=== PATIENT | female | born 1965 ===

== ENCOUNTER 2017-08-01 08:33 | Emergency (ER) | payer MEDICARE ==
[2017-08-01 08:55] VITALS: BP 149/87; PULSE 100; RESP 18; TEMP 99; O2SAT 98
--- NOTE | 2017-08-01 09:27 | ED PDOC ---
HPI: CCC, URI, Sore Throat Time Seen by Provider: 08/01/17 09:20 Chief Complaint (Nursing): ENT Problem History Per: Patient (Sore throat and left earache x 1 week. assoc with fever. No cough) Onset/Duration Of Symptoms: Days (7) Current Symptoms Are (Timing): Still Present Location Of Pain: Ear(s), Throat Associated Symptoms: Fever, Sore Throat. denies: Cough Past Medical History Vital Signs: Last Vital Signs Temp 99 F 08/01/17 08:52 Pulse 100 H 08/01/17 08:52 Resp 18 08/01/17 08:52 BP 149/87 08/01/17 08:52 Pulse Ox 98 08/01/17 08:52 - Medical History PMH: Anxiety, HTN - Family History Family History: States: Unknown Family Hx - Home Medications Home Medications: Ambulatory Orders Medication Instructions Recorded oxyCODONE/Acetaminophen [Percocet 1 ea PO TID #12 tab 11/09/14 5/325 mg Tab] Amoxicillin [Amoxil 500 mg Cap] 500 mg PO TID #30 cap 08/01/17 - Allergies Allergies/Adverse Reactions: Allergies Allergy/AdvReac Type Severity Reaction Status Date / Time No Known Allergies Allergy Verified 08/01/17 08:49 Review of Systems Constitutional: Positive for: Fever ENT: Positive for: Ear Pain, Throat Pain Respiratory: Negative for: Cough Physical Exam - Physical Exam Appears: Positive for: Non-toxic, No Acute Distress Skin: Positive for: Normal Color, Warm, DRY ENT: Positive for: TM Is/Are (nl), Pharyngeal Erythema. Negative for: Sinus Pain/Drainage Neck: Positive for: Normal, Painless ROM Cardiovascular/Chest: Positive for: Regular Rate, Rhythm Respiratory: Positive for: CNT, Normal Breath Sounds - ECG O2 Sat by Pulse Oximetry: 98 Disposition - Clinical Impression Clinical Impression: Pharyngitis - Patient ED Disposition Is Patient to be Admitted: No Counseled Patient/Family Regarding: Studies Performed, Diagnosis, Need For Followup, Rx Given - Disposition Referrals: [facility] [Outside] Disposition: Routine/Home Disposition Time: 09:26 Condition: FAIR Prescriptions: Amoxicillin [Amoxil 500 mg Cap] 500 mg PO TID #30 cap Instructions: Pharyngitis (ED)
== END 2017-08-01 10:34 | disposition home or self-care (01) ==
LOC: H.ER 08:33
DX: J02.9 Acute pharyngitis, unspecified (principal)

== ENCOUNTER 2017-11-20 09:25 | Emergency (ER) | payer MEDICARE ==
--- NOTE | 2017-11-20 10:25 | ED PDOC ---
HPI: Chest Pain Time Seen by Provider: 11/20/17 09:48 Chief Complaint (Nursing): Chest Pain Chief Complaint (Provider): Palpitation and Chest pain History Per: Patient History/Exam Limitations: no limitations Onset/Duration Of Symptoms: Days (1 day ago) Current Symptoms Are (Timing): Still Present Additional Complaint(s): 52 yo female with a history of hypertension, presents to the ED sharp chest pain , shortness of breath, palpitation, and a prescription refill for Tramadol, onset of 1 day ago. Patient reports of having on going chest pain throughout the night and this morning, and believes it stems from not taking her Tramadol prescription for the past 2 days because she misplaced the tablets. Of note, patient has a history of chronic left-sided back pain, radiating down to her left leg,and endured 4 back surgeries. She denies fever, cough, and leg swelling. Past Medical History Reviewed: Historical Data, Nursing Documentation, Vital Signs Vital Signs: Last Vital Signs Temp 98.0 F 11/20/17 13:50 Pulse 85 11/20/17 13:50 Resp 16 11/20/17 13:50 BP 145/88 11/20/17 13:50 Pulse Ox 99 11/20/17 13:50 - Medical History PMH: Anxiety, HTN, Chronic Pain (left sided back pain) - Surgical History Surgical History: (x3) Other surgeries: back surgery - Family History Family History: States: Unknown Family Hx - Social History Current smoker - smoking cessation education provided: No Ex-Smoker (has not smoked in the last 12 months): No Alcohol: None Drugs: Denies - Home Medications Home Medications: Ambulatory Orders Medication Instructions Recorded oxyCODONE/Acetaminophen [Percocet 1 ea PO TID #12 tab 11/09/14 5/325 mg Tab] Amoxicillin [Amoxil 500 mg Cap] 500 mg PO TID #30 cap 08/01/17 traMADol [Ultram] 50 mg PO TID PRN #9 tab 11/20/17 - Allergies Allergies/Adverse Reactions: Allergies Allergy/AdvReac Type Severity Reaction Status Date / Time No Known Allergies Allergy Verified 08/01/17 08:49 GRIS Risk Score for UA/NSTEMI - GRIS Risk Score Age > 64: NO 3 or more CAD Risk Factors: NO Known CAD (Stenosis greater than 50%): NO Aspirin use in past 7 days: NO Severe Angina: NO EKG ST changes greater than 0.5mm: NO Positive Cardiac Marker: NO GRIS Score: 0 Risk %: 5% Wells Criteria for PE - Wells Criteria for Pulmonary Embolism Clinical Signs and Symptoms of DVT: No P.E is #1 Diagnosis, or Equally Likely: No Heart Rate >100: No Immobilization at least 3 days;Surgery previous 4 weeks: No Previous, objectively diagnosed PE or DVT: No Hemoptysis: No Malignancy w/treatment within 6 months, or palliative: No Total Score: 0 Review of Systems ROS Statement: Except As Marked, All Systems Reviewed And Found Negative Constitutional: Negative for: Fever Cardiovascular: Positive for: Chest Pain, Palpitations Respiratory: Positive for: Shortness of Breath. Negative for: Cough Musculoskeletal: Positive for: Back Pain (left sided), Leg Pain (but no leg swelling) Physical Exam - Reviewed Nursing Documentation Reviewed: Yes Vital Signs Reviewed: Yes - Physical Exam Appears: Positive for: Well, Non-toxic, No Acute Distress Head Exam: Positive for: ATRAUMATIC, NORMAL INSPECTION, NORMOCEPHALIC Skin: Positive for: Normal Color, Warm, DRY Eye Exam: Positive for: EOMI, Normal appearance, PERRL ENT: Positive for: Normal ENT Inspection Neck: Positive for: Normal, Painless ROM Cardiovascular/Chest: Positive for: Regular Rate, Rhythm. Negative for: Murmur Respiratory: Positive for: Normal Breath Sounds. Negative for: Respiratory Distress Gastrointestinal/Abdominal: Positive for: Normal Exam, Soft. Negative for: Tenderness Back: Positive for: Other (diffusely tender to palpation) Extremity: Positive for: Normal ROM. Negative for: Pedal Edema, Deformity Neurologic/Psych: Positive for: Alert, Oriented. Negative for: Motor/Sensory Deficits - Laboratory Results Result Diagrams: 11/20/17 10:50 11/20/17 10:50 - ECG ECG Rhythm: Positive for: Normal QRS, Normal ST Segment, Sinus Rhythm (normal) Rate: 98 O2 Sat by Pulse Oximetry: 100 (RA) Pulse Ox Interpretation: Normal Medical Decision Making Medical Decision Making: Time: --10:45 Impression: --Chest pain, Chronic back pain, and prescription refill Differential: --ACS vs. cardiac arrhythmia Plan: --ECG --Labs --Troponin I --Toradol 30mg IM --Ultram 50mg PO --Video Intern Reassess -- Scribe Attestation: Documented by Alejandro Waterman acting as a scribe for Lashell Ordaz MD. Disposition - Clinical Impression Clinical Impression: Chest pain, Chronic back pain - Patient ED Disposition Is Patient to be Admitted: No Doctor Will See Patient In The: Office Counseled Patient/Family Regarding: Studies Performed, Diagnosis, Need For Followup - Disposition Referrals: [facility] [Outside] Disposition: Routine/Home Disposition Time: 13:50 Condition: GOOD Additional Instructions: Follow up with your PCP in 2-3 days. Return for worsening. Prescriptions: traMADol [Ultram] 50 mg PO TID PRN #9 tab PRN Reason: Pain, Severe (8-10) Instructions: Chronic Pain (DC), Chest Pain (DC)
[2017-11-20 10:57] LABS: BASO # 0.1 K/uL (0.0-0.2); BASO % 0.7 % (0.0-2.0); EOS # 0.1 K/uL (0.0-0.7); EOS % 1.2 % (0.0-4.0); LYMPH # 1.9 K/uL (1.0-4.3); LYMPH % 18.5 % (20.0-40.0); MEAN CELL VOLUME 97.7 fl (81.0-99.0); MEAN CORPUSCULAR HEMOGLOBIN 33.3 pg (27.0-31.0); MEAN CORPUSCULAR HGB CONC 34.1 g/dL (33.0-37.0); MEAN PLATELET VOLUME 8.2 fl (7.2-11.7); MONO # 0.5 K/uL (0.0-0.8); MONO % 4.6 % (0.0-10.0); NEUT # 7.7 K/uL (1.8-7.0); RBC 3.61 Mil/uL (3.80-5.20); RED CELL DISTRIBUTION WIDTH 14.6 % (11.5-14.5); WHITE BLOOD COUNT 10.3 K/uL (4.8-10.8)
[2017-11-20 11:28] LABS: BLOOD UREA NITROGEN 15 mg/dl (7-17); CALCIUM 9.7 mg/dL (8.4-10.2); GFR AFRICAN-AMERICAN > 60; GFR NON-AFRICAN AMERICAN > 60
[2017-11-20 13:52] VITALS: BP 145/88; RESP 16; TEMP 98
[2017-11-20 15:59] VITALS: PULSE 98; O2SAT 100
--- NOTE | 2017-11-21 12:12 | CARD ---
APPROVED REPORT EKG Measurement Heart [id number] <Conclusion> Normal sinus rhythm Normal ECG
== END 2017-11-20 13:50 | disposition home or self-care (01) ==
LOC: H.ER 09:25
DX: R07.89 Other chest pain (principal); F41.9 Anxiety disorder, unspecified; G89.29 Other chronic pain; I10 Essential (primary) hypertension; Z76.0 Encounter for issue of repeat prescription
CPT/HCPCS: 80048; 81025; 84484; 85025; 93005; 96372; 99283; J1885

== ENCOUNTER 2018-10-24 20:49 | Inpatient (IN) | payer MEDICARE ==
--- NOTE | 2018-10-24 22:10 | ED PDOC ---
HPI: General Adult Time Seen by Provider: 10/24/18 21:02 Chief Complaint (Nursing): Palpitations Chief Complaint (Provider): Weakness History Per: Patient History/Exam Limitations: no limitations Onset/Duration Of Symptoms: Persistent Additional History Per: Patient Additional Complaint(s): 53yo female, with history of hypertension (non-compliant with medications), com es to ER reporting generalized weakness x 2 weeks, which has been progressively worsening. She also reports associated malaise, fatigue, tremors and unintentional weight loss. Patient states she feels as if her extremities are more "slim" than usual. She also reports episodes of blurry vision with a ssociated headache; patient had similar symptoms when she was first diagnosed with hypertension. She stopped taking her hypertension medications 2-3 years ago after her 4th back surgery because she felt like she didn't need it anymore. She additionally reports chills, mild headache, near syncopal episode and dyspnea on exertion. No additional complaints. PMD: Dr. Arreola (has not seen in >1 year) Past Medical History Reviewed: Historical Data, Nursing Documentation, Vital Signs Vital Signs: Last Vital Signs Temp 98.1 F 10/24/18 20:53 Pulse 111 H 10/24/18 20:53 Resp 22 10/24/18 20:53 BP 184/91 H 10/24/18 20:53 Pulse Ox 98 10/24/18 20:53 - Medical History PMH: Anxiety, HTN, Chronic Pain (left sided back pain) - Surgical History Surgical History: Back Surgery, (x3) Other surgeries: clavicular fracture repair - Family History Family History: States: Hypertension, Other Other Family History: cardiac disease - Social History Current smoker - smoking cessation education provided: No Alcohol: Occasional Drugs: Cannabis, Cocaine, Opiates - Home Medications Home Medications: Ambulatory Orders Medication Instructions Recorded oxyCODONE/Acetaminophen [Percocet 1 ea PO TID #12 tab 11/09/14 5/325 mg Tab] Amoxicillin [Amoxil 500 mg Cap] 500 mg PO TID #30 cap 08/01/17 traMADol [Ultram] 50 mg PO TID PRN #9 tab 11/20/17 - Allergies Allergies/Adverse Reactions: Allergies Allergy/AdvReac Type Severity Reaction Status Date / Time No Known Allergies Allergy Verified 10/24/18 20:51 Review of Systems ROS Statement: Except As Marked, All Systems Reviewed And Found Negative Constitutional: Positive for: Fever, Chills, Malaise, Weight loss Cardiovascular: Positive for: Light Headedness. Negative for: Chest Pain Respiratory: Positive for: SOB with Exertion. Negative for: Shortness of Breath Neurological: Positive for: Headache Physical Exam - Reviewed Nursing Documentation Reviewed: Yes Vital Signs Reviewed: Yes - Physical Exam Appears: Positive for: Non-toxic, No Acute Distress Head Exam: Positive for: ATRAUMATIC, NORMAL INSPECTION, NORMOCEPHALIC Skin: Positive for: Warm, Dry, Pallor Eye Exam: Positive for: EOMI, PERRL, Other (normal visual field test). Negative for: Nystagmus ENT: Negative for: Pharyngeal Erythema, Tonsillar Exudate Neck: Positive for: Normal, Supple Cardiovascular/Chest: Positive for: Tachycardia. Negative for: Murmur Respiratory: Positive for: Normal Breath Sounds. Negative for: Respiratory Distress Gastrointestinal/Abdominal: Positive for: Normal Exam, Soft. Negative for: Tenderness Back: Positive for: Normal Inspection. Negative for: Vertebral Tenderness Rectal: Positive for: Rectal Tone Is: (normal), Other (Assited by ANTWAN Knowles). Negative for: Black Stool, Hemorrhoids, Tenderness Extremity: Positive for: Normal ROM, Other (diffuse tremors noted) Lymphatic: Negative for: Adenopathy Neurologic/Psych: Positive for: Alert, Oriented (x 3). Negative for: M otor/Sensory Deficits - Laboratory Results Result Diagrams: 10/24/18 22:10 10/24/18 22:10 - ECG O2 Sat by Pulse Oximetry: 98 (RA) Pulse Ox Interpretation: Normal Medical Decision Making Medical Decision Making: Impression: Weakness, tremors and blurry vision Differential: Including but not limited to hypertensive encephalopathy, hyperthyroidsm, electrolyte abnormalities, anemia, viral syndrome Plan: -- labs -- CT Head w.o contrast -- Infectious mono 7 CT Head FINDINGS: BRAIN No acute intraparenchymal hemorrhage. No mass lesion. No CT evidence for acute territorial infarct. No midline shift or extra-axial collections. VENTRICLES: No hydrocephalus. ORBITS: The orbits are unremarkable. SINUSES AND MASTOIDS: The paranasal sinuses and mastoid air cells are clear. BONES: No fracture. SOFT TISSUES: Unremarkable. IMPRESSION: No acute intracranial abnormality. 2255 Labs reviewed, patient's hemoglobin level is 6; discussed findings with patient and denies history of anemia. She states she hasnt had a period in > 1 year. She also denies any black or bloody stools, and denies history of GI bleed. Patient does reports her mother had history of iron deficiency. Discussed risks and benefits of transfusion, and consent for blood tansfusion obtained. MIRA Sinha Medical service for admission Scribe Attestation: Documented by Andria Casper acting as a scribe for Regine Morris MD. Provider Attestation: All medical record entries made by the Scribe were at my direction and personally dictated by me. I have reviewed the chart and agree that the record accurately reflects my personal performance of the history, physical exam, medical decision making, and the department course for this patient. I have also personally directed, reviewed, and agree with the discharge instructions and disposition. Disposition - Clinical Impression Clinical Impression: Anemia - Disposition Disposition Time: 23:00 Condition: FAIR Forms: [employer]ure (Kiswahili) - Pt Status Changed To: Hospital Disposition Of: Inpatient - Admit Certification Admit to Inpatient:: After my assessment, the patient will require hospitalization for at least two midnights. This is because of the severity of symptoms shown, intensity of services needed, and/or the medical risk in this patient being treated as an outpatient. - POA Present On Arrival: None
[2018-10-24 22:25] LABS: BASO # 0.1 K/uL (0.0-0.2); BASO % 0.7 % (0.0-2.0); EOS # 0.2 K/uL (0.0-0.7); EOS % 2.5 % (0.0-4.0); LYMPH # 3.1 K/uL (1.0-4.3); LYMPH % 40.3 % (20.0-40.0); MEAN CELL VOLUME 107.6 fl (81.0-99.0); MEAN CORPUSCULAR HEMOGLOBIN 35.5 pg (27.0-31.0); MEAN PLATELET VOLUME 7.6 fl (7.2-11.7); MONO # 0.5 K/uL (0.0-0.8); MONO % 6.2 % (0.0-10.0); NEUT # 3.9 K/uL (1.8-7.0); NEUT % 50.3 % (50.0-75.0); NRBC % 0.3 % (0.0-0.0); RBC 1.83 Mil/uL (3.80-5.20); RED CELL DISTRIBUTION WIDTH 20.8 % (11.5-14.5); WHITE BLOOD COUNT 7.8 K/uL (4.8-10.8)
[2018-10-24 22:30] LABS: PROTHROMBIN TIME 11.7 Seconds (9.8-13.1)
[2018-10-24 22:32] LABS: PARTIAL THROMBOPLASTIN TIME 34.2 Seconds (25.6-37.1)
[2018-10-24 22:37] LABS: ALBUMIN 4.1 g/dL (3.5-5.0); ALT/SGPT 51 U/L (9-52); AST/SGOT 86 U/L (14-36); BLOOD UREA NITROGEN 20 mg/dl (7-17); CALCIUM 9.4 mg/dL (8.4-10.2); GFR NON-AFRICAN AMERICAN > 60
[2018-10-24 22:46] LABS: PHENCYCLIDINE, UR NEGATIVE (NEGATIVE)
[2018-10-24 22:47] LABS: HEMOGLOBIN 6.5 g/dL (12.0-16.0)
[2018-10-24 22:50] LABS: VENOUS BLOOD GAS PCO2 56 mmHg (40-60); VENOUS BLOOD GAS PO2 31 mm/Hg (30-55)
[2018-10-24 22:52] LABS: BARBITURATES, UR NEGATIVE (NEGATIVE); BENZODIAZEPINES, UR NEGATIVE (NEGATIVE); OPIATES, UR NEGATIVE (NEGATIVE)
[2018-10-24 23:01] LABS: B-TYPE NATRIURETIC PEPTIDE 242 pg/ml (0-900)
[2018-10-24 23:19] LABS: T3 3.78 nmol/L (1.49-2.60)
[2018-10-24 23:42] LABS: IRON 189 ug/dL (37-170)
[2018-10-24 23:51] LABS: % IRON SATURATION 49 % (20-55); TOTAL IRON BINDING CAPACITY 385 ug/dL (250-450)
[2018-10-25 00:08] LABS: FERRITIN 75.5 ng/Ml (11.1-264.0)
[2018-10-25 00:59] LABS: SQUAMOUS EPITHIAL 4 /hpf (0-5); URINE BACTERIA RARE (<OCC); URINE BILIRUBIN NEGATIVE (NEGATIVE); URINE BLOOD NEGATIVE (NEGATIVE); URINE CLARITY SLIGHTY-CLOUDY (Clear); URINE COLOR YELLOW (YELLOW); URINE GLUCOSE (UA) NEG (NEGATIVE); URINE HYALINE CAST 0-2 /hpf (0-2); URINE LEUKOCYTE ESTERASE NEG Leu/uL (Negative); URINE PROTEIN NEGATIVE (NEGATIVE); URINE UROBILINOGEN 0.2-1.0 mg/dL (0.2-1.0)
[2018-10-25] MEDS: Sodium Chloride 0.9% 1,000 ML IV SCH ×4 (01:57→21:04)
--- NOTE | 2018-10-25 09:48 | CARD ---
APPROVED REPORT Date of service: 10/24/2018 EKG Measurement Heart [id number] <Conclusion> Normal sinus rhythm Normal ECG
--- NOTE | 2018-10-25 09:48 | CT ---
Date of service: 10/24/2018 PROCEDURE: CT HEAD WITHOUT CONTRAST. HISTORY: hypertension blurry vision COMPARISON: None available. TECHNIQUE: Axial computed tomography images were obtained through the head/brain without intravenous contrast. Radiation dose: Total exam DLP = 803.08 mGy-cm. This CT exam was performed using one or more of the following dose reduction techniques: Automated exposure control, adjustment of the mA and/or kV according to patient size, and/or use of iterative reconstruction technique. FINDINGS: HEMORRHAGE: No intracranial hemorrhage. BRAIN: No mass effect or edema. No atrophy or chronic microvascular ischemic changes. VENTRICLES: Unremarkable. No hydrocephalus. CALVARIUM: There is diffuse thickening of the calvarium with diffuse multiple varying sizes of lucencies throughout the diploic space-this is of unclear clinical significance-if any-. Complete blood count the correlation is recommended. PARANASAL SINUSES: Unremarkable as visualized. No significant inflammatory changes. MASTOID AIR CELLS: Unremarkable as visualized. No inflammatory changes. OTHER FINDINGS: None. IMPRESSION: Intracranial hemorrhage or mass effect. Diffuse calvarial thickening with the aforementioned appearance of the calvarial diploic space. Its clinical significance, if any-is unclear. Correlation with blood work-hematological blood work/complete blood cell analysis and to evaluate for any potential anemic states. No hemorrhage or mass effect was provided with the preliminary [place] rad report the appearance of the calvarial diploic space was not.
[2018-10-25 14:18] LABS: FOLATE 15.2 ng/mL
[2018-10-25 14:26] LABS: MEAN CELL VOLUME 98.3 fl (81.0-99.0); MEAN CORPUSCULAR HEMOGLOBIN 33.6 pg (27.0-31.0); MEAN CORPUSCULAR HGB CONC 34.2 g/dL (33.0-37.0); RBC 2.83 Mil/uL (3.80-5.20); RED CELL DISTRIBUTION WIDTH 22.4 % (11.5-14.5)
[2018-10-25 14:28] LABS: HEMOGLOBIN 9.5 g/dL (12.0-16.0)
[2018-10-25 14:30] LABS: INR 1.1
[2018-10-26] MEDS ORDERED: Iohexol 240 (50 ml) PO ONE (08:27)
--- NOTE | 2018-10-26 08:38 | CP.PCM.CON ---
History of Present Illness - History of Present Illness History of Present Illness: This is a 53 yrs old female who was brought to the ER with c/o severe weakness, dizziness, near syncopy. This has been going on for the last 6 weeks and pt has lost 8 lbs since then. She moves her bowels regularly, no blood in the stools, no dark colored stools. She c/o abdominal pain. She has a h/o hypertension but she stopped taking her medicines 3 yrs ago. She has had 3 surgeries for her spine that she had injured during an accident and was taking Tramadol 3-4 times a day for the pain. She used to have heavy periods, but had her menopause at age 50. No vaginal bleeding since then. IN the ER she had a CBC done which shows a wbc of 7.8, hgb 6.5gms, platelet 256K, She was transfused 2 units of blood and today her hgb is 9.5. The iron studies, and B12 are normal. Her reticulocyte count is 9.2, and haptoglobin <20. Her MCV was 107.6 on admission but has changed to 98.3 post transfusion. Her LFT show an elevated alk [id number], AST is elevated to 86, alt is normal as is the bilirubin, her total protein is 8.1,a nd globulin mildly elevated to 4.0. Toxicology studies show her to be positive for cocaine. A CT scan of the head done had two different readings one sating she has hemorrhage the other says not. Pt does not smoke Drinks alcohol very rarely but uses cocaine with her friends. Mother had a h/o hypertension and cardiac problems. Past Patient History - Past Medical History & Family History Past Medical History?: No - Past Social History Smoking Status: non smoker - CARDIAC Hx Cardiac Disorders: Yes Hx Hypertension: Yes - PULMONARY Hx Asthma: Yes - HEMATOLOGICAL/ONCOLOGICAL Hx AIDS: No Hx Anemia: Yes Hx Human Immunodeficiency Virus (HIV): No - MUSCULOSKELETAL/RHEUMATOLOGICAL Hx Falls: Yes (February 2018) - PSYCHIATRIC Hx Substance Use: No (denies) - SURGICAL HISTORY Hx Surgeries: Yes Hx Section: Yes Other/Comment: back surgery - ANESTHESIA Hx Anesthesia: Yes Hx Anesthesia Reactions: No Hx Malignant Hyperthermia: No Meds Allergies/Adverse Reactions: Allergies Allergy/AdvReac Type Severity Reaction Status Date / Time No Known Allergies Allergy Verified 10/24/18 20:51 - Medications Medications: Current Medications Pantoprazole Sodium (Protonix Inj) 40 mg IVP DAILY JOSE Last Admin: 10/25/18 08:57 Dose: 40 mg Tramadol HCl (Ultram) 100 mg PO TID PRN PRN Reason: Pain, moderate (4-7) Last Admin: 10/26/18 04:05 Dose: 100 mg Zolpidem Tartrate (Ambien) 5 mg PO HS PRN PRN Reason: Insomnia Last Admin: 10/26/18 00:14 Dose: 5 mg Physical Exam - Additional Findings Additional findings: Physical exam; alert,well oriented in no acute distress Vital sighns are within the normal ;limits.except BP 159/80 neck; sup[ple , no mass, no h/s megaly Chest; Clear, no rales or rhonchi Heart; RSR,no murmur Abd; Soft, no mass, tenderness in the epigastric and RUQ. Results - Vital Signs Recent Vital Signs: Last Vital Signs Temp 98.2 F 10/26/18 00:12 Pulse 87 10/26/18 00:12 Resp 18 10/26/18 00:12 BP 158/86 H 10/26/18 00:12 Pulse Ox 98 10/26/18 00:12 - Labs Result Diagrams: 10/25/18 14:02 10/24/18 22:10 Labs: Laboratory Results - last 24 hr 10/24/18 10/24/18 10/24/18 22:10 23:04 23:13 WBC RBC Hgb Hct MCV MCH MCHC RDW Plt Count Haptoglobin < 20.0 L PT INR Folate 15.2 Crossmatch See Detail 10/25/18 10/25/18 14:02 14:02 WBC 8.0 RBC 2.83 L Hgb 9.5 L D Hct 27.8 L MCV 98.3 D MCH 33.6 H MCHC 34.2 RDW 22.4 H Plt Count 231 Haptoglobin PT 12.0 INR 1.1 Folate Crossmatch Assessment & Plan - Assessment and Plan (Free Text) Assessment: impression; Anemia etiology to be determined . ? myeloma WT loss, r/o occult malignancy Plan: Plan; Have ordered blood tests and CT chest,abd and pelvis. will discuss with Radiologist the correct reading for the ct head. - Date & Time Date: 10/26/18 Time: 09:09
[2018-10-26] MEDS ORDERED: Iohexol 300 100 ML IJ ONE (11:19)
[2018-10-26] MEDS ORDERED: Sodium Chloride 0.9% 50 ML IV ONE (11:19)
--- NOTE | 2018-10-26 11:30 | CP.PCM.PCO ---
Assessment/Plan - Assessment/Plan Assessment (Free Text): Spoke to Dr. Almaguer, radiologist, he reviewed the CT of head and states there is no hemorrhage. He will contact Dr. Clark to make an addendum
--- NOTE | 2018-10-26 12:12 | CP.PCM.HP ---
Past Patient History - Past Medical History & Family History Past Medical History?: No - Past Social History Smoking Status: non smoker - CARDIAC Hx Cardiac Disorders: Yes Hx Hypertension: Yes - PULMONARY Hx Asthma: Yes - HEMATOLOGICAL/ONCOLOGICAL Hx AIDS: No Hx Anemia: Yes Hx Human Immunodeficiency Virus (HIV): No - MUSCULOSKELETAL/RHEUMATOLOGICAL Hx Falls: Yes (February 2018) - PSYCHIATRIC Hx Substance Use: No (denies) - SURGICAL HISTORY Hx Surgeries: Yes Hx Section: Yes Other/Comment: back surgery - ANESTHESIA Hx Anesthesia: Yes Hx Anesthesia Reactions: No Hx Malignant Hyperthermia: No Meds Allergies/Adverse Reactions: Allergies Allergy/AdvReac Type Severity Reaction Status Date / Time No Known Allergies Allergy Verified 10/24/18 20:51 Results - Vital Signs Recent Vital Signs: Last Vital Signs Temp 98.3 F 10/26/18 08:38 Pulse 79 10/26/18 08:38 Resp 19 10/26/18 08:38 BP 144/80 10/26/18 08:38 Pulse Ox 97 10/26/18 08:38 - Labs Result Diagrams: 10/25/18 14:02 10/24/18 22:10 Labs: Laboratory Results - last 24 hr 10/24/18 10/24/18 10/25/18 23:04 23:13 14:02 WBC RBC Hgb Hct MCV MCH MCHC RDW Plt Count Haptoglobin < 20.0 L PT 12.0 INR 1.1 Lactate Dehydrogenase Folate 15.2 10/25/18 10/26/18 14:02 08:40 WBC 8.0 RBC 2.83 L Hgb 9.5 L D Hct 27.8 L MCV 98.3 D MCH 33.6 H MCHC 34.2 RDW 22.4 H Plt Count 231 Haptoglobin PT INR Lactate Dehydrogenase 1156 H Folate Assessment & Plan (1) Symptomatic anemia Status: Acute
--- NOTE | 2018-10-26 13:46 | CT ---
Date of service: 10/26/2018 PROCEDURE: CT Chest, Abdomen and Pelvis with intravenous contrast HISTORY: anemia,wt loss,abdominal pain COMPARISON: None available. TECHNIQUE: IV dose administered: 95 cc Omnipaque 300. Radiation dose: Total exam DLP = 554.85 mGy-cm. This CT exam was performed using one or more of the following dose reduction techniques: Automated exposure control, adjustment of the mA and/or kV according to patient size, and/or use of iterative reconstruction technique. FINDINGS: CT CHEST WITH CONTRAST: LUNGS: Clear. No nodule, mass or consolidation. MEDIASTINUM: Unremarkable. Normal caliber aorta and pulmonary arterial trunk. No aortic dissection. Normal size heart. LYMPH NODES: Right axillary and chest wall adenopathy asymmetric compared to the left. Largest lymph node 1.2 x 1.6 cm. No abnormalities within the adjacent right breast to suggest a primary breast neoplasm. Smaller less suspicious lymph nodes in the left axilla/chest wall region none larger 1.2 cm. No significant hilar mediastinal adenopathy. PLEURA: Unremarkable. No pneumothorax. No pleural fluid. BONES: Sclerotic lesions identified bilateral humeral heads. Sclerotic disease also noted about the right glenoid. Innumerable sclerotic lesions throughout visualized thoracic spine, sternum. OTHER FINDINGS: None. CT ABDOMEN AND PELVIS: LIVER: Unremarkable. No gross lesion or ductal dilatation. GALLBLADDER AND BILE DUCTS: Unremarkable. PANCREAS: Ill-defined mass in the head of the pancreas. There is resultant pancreatic duct dilatation and dilatation of the common bile duct as well as intrahepatic biliary radicles. SPLEEN: Unremarkable. ADRENALS: Unremarkable. No mass. KIDNEYS AND URETERS: Mild hydronephrosis and hydroureter particularly on the right. No evidence of ureteral calculus. Previously described pelvic masses are likely and elevating or impressing upon the ureters. VASCULATURE: No aortic atherosclerotic calcification or mural plaque present. Unremarkable. No aortic aneurysm. BOWEL: Unremarkable. No obstruction. No gross mural thickening. APPENDIX: No abnormalities to suggest acute appendicitis. No right lower quadrant inflammatory processes identified. PERITONEUM: Intra-abdominal ascites. Fluid identified in the pelvis as well. LYMPH NODES: Unremarkable. No enlarged lymph nodes. BLADDER: Diffuse bladder wall thickening, cystitis. The findings are generalize common no discrete, focal bladder wall mass is apparent. REPRODUCTIVE: Unremarkable uterus is visualized. However interposed between the uterus and the rectum are pelvic masses likely drop metastasis. Largest, best seen on the sagittal view measures 2.6 x 4.3 cm. Additional masses identified of similar appearance. BONES: Sclerotic metastatic disease visualized thoracolumbar spine, pelvis, proximal femurs. No pathologic fractures identified. Postoperative findings related to lumbar laminectomy and posterior fusion. OTHER FINDINGS: None. IMPRESSION: 1. Right axillary lymphadenopathy, suspicious for neoplasm. 2. Widely disseminated sclerotic metastatic disease including both shoulders, thoracolumbar spine, pelvis, proximal femurs. 3. Tumor masses about the head of the pancreas perhaps emanating from the pancreas with resultant dilatation of the pancreatic duct, the common duct and intrahepatic biliary radicles. Trace air at the level of the ampulla suggest recent instrumentation. 4. Intra-abdominal and pelvic ascites. 5. 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 6. Diffuse thickening of the bladder wall likely cystitis.
[2018-10-26] MEDS: Morphine 4 MG/ML VIAL IVP PRN (20:15)
[2018-10-27] MEDS: Morphine 4 MG/ML VIAL IVP PRN ×4 (02:56→23:53)
[2018-10-27 06:00] LABS: BASO # 0.1 K/uL (0.0-0.2); BASO % 0.8 % (0.0-2.0); EOS # 0.2 K/uL (0.0-0.7); EOS % 2.3 % (0.0-4.0); HEMOGLOBIN 8.9 g/dL (12.0-16.0); LYMPH # 2.3 K/uL (1.0-4.3); MEAN CELL VOLUME 99.2 fl (81.0-99.0); MEAN CORPUSCULAR HEMOGLOBIN 33.4 pg (27.0-31.0); MEAN CORPUSCULAR HGB CONC 33.7 g/dL (33.0-37.0); MEAN PLATELET VOLUME 7.4 fl (7.2-11.7); MONO # 0.5 K/uL (0.0-0.8); MONO % 7.1 % (0.0-10.0); NEUT # 3.7 K/uL (1.8-7.0); NEUT % 54.8 % (50.0-75.0); NRBC % 0.9 % (0.0-0.0); RBC 2.67 Mil/uL (3.80-5.20); RED CELL DISTRIBUTION WIDTH 23.3 % (11.5-14.5); WHITE BLOOD COUNT 6.7 K/uL (4.8-10.8)
[2018-10-27 06:24] LABS: ALBUMIN 3.8 g/dL (3.5-5.0); ALT/SGPT 76 U/L (9-52); AST/SGOT 127 U/L (14-36); BLOOD UREA NITROGEN 19 mg/dl (7-17); CALCIUM 9.5 mg/dL (8.4-10.2); GFR NON-AFRICAN AMERICAN 52
[2018-10-27 08:01] LABS: MCH 33.1 pg (27.0-33.0); MCV 99.2 fL (80.0-100.0)
[2018-10-27 11:02] LABS: ALBUMIN (PEP) 3.5 g/dL (3.8-4.8); ALPHA-1-GLOBULIN (PEP) 0.3 g/dL (0.2-0.3)
--- NOTE | 2018-10-27 11:14 | CP.PCM.PN ---
Subjective - Date & Time of Evaluation Date of Evaluation: 10/27/18 Time of Evaluation: 11:10 - Subjective Subjective: Patient is very depressed after hearing that she may have cancer. The ct scan showed mass in the pancreatic head, small masses in the pelvis, with some hydronephrosis on the right. She also has right axillary adenopathy, and a questionable mass in the medial aspect of the right breast. her CEA is 697 and CA 125 is 81,000. She is to be seen by Dr Crandall for GI eval. Will try to get a mammogram if possible. She also had diffuse skeletal metastasis as well, but te SPE and Immunofixation is normal Objective - Vital Signs/Intake and Output Vital Signs (last 24 hours): Temp Pulse Resp BP Pulse Ox 98.2 F 84 19 151/87 H 95 10/27/18 07:26 10/27/18 07:26 10/27/18 07:26 10/27/18 07:26 10/27/18 07:26 - Medications Medications: Current Medications Morphine Sulfate (Morphine) 2 mg IVP Q6 PRN PRN Reason: Pain, severe (8-10) Last Admin: 10/27/18 08:44 Dose: 2 mg Pantoprazole Sodium (Protonix Inj) 40 mg IVP DAILY JOSE Last Admin: 10/27/18 08:36 Dose: 40 mg Tramadol HCl (Ultram) 100 mg PO Q6 PRN PRN Reason: Pain, moderate (4-7) Zolpidem Tartrate (Ambien) 5 mg PO HS PRN PRN Reason: Insomnia Last Admin: 10/26/18 22:26 Dose: 5 mg - Labs Labs: 10/27/18 05:45 10/27/18 05:45 PT 12.0 Seconds (9.8-13.1) 10/25/18 14:02 INR 1.1 10/25/18 14:02 APTT 34.2 Seconds (25.6-37.1) 10/24/18 22:10
--- NOTE | 2018-10-27 12:02 | CP.PCM.CON ---
History of Present Illness - History of Present Illness History of Present Illness: 53 year admitted on 10/25/2018 for weakness and anemia. Notes fatigue over several months but no weight loss. Evaluation and CT scan abdomen and pelvis nrevealed head of pancreas mass, cheryl metastasis in scapula and spine, and axillary lymph nodes. CA125 18,000, CEA 600, CA19-9 normal. Review of Systems - Constitutional Constitutional: Fatigue Past Patient History - Past Medical History & Family History Past Medical History?: No - Past Social History Smoking Status: non smoker Alcohol: Occasional Home Situation {Lives}: With Family - CARDIAC Hx Cardiac Disorders: Yes Hx Hypertension: Yes - PULMONARY Hx Asthma: Yes - HEMATOLOGICAL/ONCOLOGICAL Hx AIDS: No Hx Anemia: Yes Hx Human Immunodeficiency Virus (HIV): No - MUSCULOSKELETAL/RHEUMATOLOGICAL Hx Falls: Yes (February 2018) - PSYCHIATRIC Hx Substance Use: No (denies) - SURGICAL HISTORY Hx Surgeries: Yes ( x 3) Hx Section: Yes Other/Comment: back surgery - ANESTHESIA Hx Anesthesia: Yes Hx Anesthesia Reactions: No Hx Malignant Hyperthermia: No Meds Allergies/Adverse Reactions: Allergies Allergy/AdvReac Type Severity Reaction Status Date / Time No Known Allergies Allergy Verified 10/24/18 20:51 - Medications Medications: Current Medications Morphine Sulfate (Morphine) 2 mg IVP Q6 PRN PRN Reason: Pain, severe (8-10) Last Admin: 10/27/18 08:44 Dose: 2 mg Pantoprazole Sodium (Protonix Inj) 40 mg IVP DAILY JOSE Last Admin: 10/27/18 08:36 Dose: 40 mg Tramadol HCl (Ultram) 100 mg PO Q6 PRN PRN Reason: Pain, moderate (4-7) Zolpidem Tartrate (Ambien) 5 mg PO HS PRN PRN Reason: Insomnia Last Admin: 10/26/18 22:26 Dose: 5 mg Physical Exam - Constitutional Appears: Well - Head Exam Head Exam: ATRAUMATIC, NORMOCEPHALIC - Neck Exam Neck exam: Positive for: Full Rom - Cardiovascular Exam Cardiovascular Exam: REGULAR RHYTHM - GI/Abdominal Exam GI & Abdominal Exam: Normal Bowel Sounds, Soft, Tenderness Additional comments: tender on deep palpation - Extremities Exam Extremities exam: Positive for: normal inspection - Neurological Exam Neurological exam: Alert, CN II-XII Intact, Normal Gait, Oriented x3, Reflexes Normal - Psychiatric Exam Psychiatric exam: Normal Affect, Normal Mood - Skin Skin Exam: Normal Color, Warm Results - Vital Signs Recent Vital Signs: Last Vital Signs Temp 98.2 F 10/27/18 07:26 Pulse 84 10/27/18 07:26 Resp 19 10/27/18 07:26 BP 151/87 H 10/27/18 07:26 Pulse Ox 95 10/27/18 07:26 - Labs Result Diagrams: 10/27/18 05:45 10/27/18 05:45 Labs: Laboratory Results - last 24 hr 10/26/18 10/26/18 10/26/18 08:40 09:12 09:12 WBC RBC Hgb Hct MCV MCH MCHC RDW Plt Count MPV Neut % (Auto) Lymph % (Auto) [place] % (Auto) Eos % (Auto) Baso % (Auto) Neut # (Auto) Lymph # (Auto) [place] # (Auto) Eos # (Auto) Baso # (Auto) Hemoglobinopathy Red Blood Count Hemoglobinopathy Hct Hemoglobinopathy Hgb Hemoglobinopathy MCV Hemoglobinopathy MCH Hemoglobinopathy RDW Sodium Potassium Chloride Carbon Dioxide Anion Gap BUN Creatinine Est GFR ( Amer) Est GFR (Non-Af Amer) Random Glucose Calcium Total Bilirubin AST ALT Alkaline Phosphatase Total Protein Total Protein (PEP) 6.9 Albumin Albumin (PEP) 3.5 L Globulin Albumin/Globulin Ratio Sbgao-4-Lzyrkuarb 0.3 Jtgje-3-Lqvkatagx 0.6 Kbro-8-Svnfbkex 0.5 Lnmc-5-Rbiguvhn 0.5 Gamma Globulins 1.4 Abnorm Protein Band 1 TEST NOT PERFORMED Abnorm Protein Band 2 TEST NOT PERFORMED Abnorm Protein Band 3 TEST NOT PERFORMED Carcinoembryonic Ag 697.0 H CA 19-9 Antigen 16.4 CA 125 Antigen 98739 H IgG 1434 IgA 433 IgM 187 LOUISE & SPEP Interp See note 10/26/18 10/27/18 10/27/18 12:38 05:45 05:45 WBC 6.7 RBC 2.67 L Hgb 8.9 L Hct 26.5 L MCV 99.2 H MCH 33.4 H MCHC 33.7 RDW 23.3 H Plt Count 188 MPV 7.4 Neut % (Auto) 54.8 Lymph % (Auto) 35.0 [place] % (Auto) 7.1 Eos % (Auto) 2.3 Baso % (Auto) 0.8 Neut # (Auto) 3.7 Lymph # (Auto) 2.3 [place] # (Auto) 0.5 Eos # (Auto) 0.2 Baso # (Auto) 0.1 Hemoglobinopathy Red Blood Count 2.82 L Hemoglobinopathy Hct 27.9 L Hemoglobinopathy Hgb 9.3 L Hemoglobinopathy MCV 99.2 Hemoglobinopathy MCH 33.1 H Hemoglobinopathy RDW 24.5 H Sodium 139 Potassium 4.2 Chloride 95 L Carbon Dioxide 35 H Anion Gap 13 BUN 19 H Creatinine 1.1 Est GFR ( Amer) > 60 Est GFR (Non-Af Amer) 52 Random Glucose 115 H Calcium 9.5 Total Bilirubin 1.6 H AST 127 H D ALT 76 H D Alkaline Phosphatase 494 H Total Protein 7.6 Total Protein (PEP) Albumin 3.8 Albumin (PEP) Globulin 3.9 Albumin/Globulin Ratio 1.0 Ajuqt-5-Auqboutzx Hmfrg-0-Vgozwdosw Lwtt-1-Lcfyiznq Swno-0-Jdxxtxaz Gamma Globulins Abnorm Protein Band 1 Abnorm Protein Band 2 Abnorm Protein Band 3 Carcinoembryonic Ag CA 19-9 Antigen CA 125 Antigen IgG IgA IgM LOUISE & SPEP Interp - Imaging and Cardiology CT scan - abdomen Status: Image reviewed by me Additional comment: Pancreas mass with possible portal vein encasement, biliary dilatation, boeny metastasis Assessment & Plan (1) Pancreas malignancy Assessment and Plan: 53 year old female multiple processes including pancreas head mass, metastatic l esions scapula, axillary adenopathy, CA125 18,000, CEA 600. Unfortunately, patient has metastatic cancer from unknown source. Cheryl metastasis for pancreas primary unusual. At present patient needs endoscopy to assess severe anemia. Further evaluation for metastatic cancer as per medical oncology. LFT mildly obstructive consistent with CT scan. Should her alk phos and T bili continue to rise, she may benefit from palliative stenting. Unfortunately surgery, will not help her. Status: Acute (2) Jaundice with stoppage of bile flow Assessment and Plan: possible ERCP and palliative stenting Status: Acute - Assessment and Plan (Free Text) Assessment: 53 year old female multiple processes including pancreas head mass, metastatic lesions scapula, axillary adenopathy, CA125 18,000, CEA 600. Unfortunately, patient has metastatic cancer from unknown source. Cheryl metastasis for pancreas primary unusual. At present patient needs endoscopy to assess severe anemia. Further evaluation for metastatic cancer as per medical oncology. LFT mildly obstructive consistent with CT scan. Should her alk phos and T bili continue to rise, she may benefit from palliative stenting. Unfortunately surgery, will not help her.
[2018-10-28] MEDS: Morphine 4 MG/ML VIAL IVP PRN ×3 (08:06→21:34)
--- NOTE | 2018-10-28 08:47 | CP.PCM.PN ---
Subjective - Date & Time of Evaluation Date of Evaluation: 10/28/18 Time of Evaluation: 08:42 - Subjective Subjective: Pt c/o back pain and nausea. She is extremely anxious about all the findings. She had a mammogram yesterday, the report not yet available. There is the possibility of 2 different malignancies, breast with skeletal metastasis and pancreas with pelvic metastasis. She will have an endoscopy to look for a cause for severe anemia. If a mass shows up in the mammogram ,, will suggest that biopsy first. Objective - Vital Signs/Intake and Output Vital Signs (last 24 hours): Temp Pulse Resp BP Pulse Ox 98.5 F 82 19 147/77 97 10/28/18 07:53 10/28/18 07:53 10/28/18 07:53 10/28/18 07:53 10/28/18 07:53 - Medications Medications: Current Medications Acetaminophen (Tylenol 325mg Tab) 650 mg PO Q6 PRN PRN Reason: Headache Morphine Sulfate (Morphine) 2 mg IVP Q6 PRN PRN Reason: Pain, severe (8-10) Last Admin: 10/28/18 08:06 Dose: 2 mg Ondansetron HCl (Zofran Odt) 4 mg PO Q8H PRN PRN Reason: Nausea/Vomiting Pantoprazole Sodium (Protonix Inj) 40 mg IVP DAILY JOSE Last Admin: 10/27/18 08:36 Dose: 40 mg Tramadol HCl (Ultram) 100 mg PO Q6 PRN PRN Reason: Pain, moderate (4-7) Last Admin: 10/27/18 20:49 Dose: 100 mg Zolpidem Tartrate (Ambien) 5 mg PO HS PRN PRN Reason: Insomnia Last Admin: 10/28/18 00:30 Dose: 5 mg - Labs Labs: 10/27/18 05:45 10/27/18 05:45 PT 12.0 Seconds (9.8-13.1) 10/25/18 14:02 INR 1.1 10/25/18 14:02 APTT 34.2 Seconds (25.6-37.1) 10/24/18 22:10
--- NOTE | 2018-10-28 11:07 | CP.PCM.PN ---
Subjective - Date & Time of Evaluation Date of Evaluation: 10/28/18 Time of Evaluation: 11:05 - Subjective Subjective: no overnight events Objective - Vital Signs/Intake and Output Vital Signs (last 24 hours): Temp Pulse Resp BP Pulse Ox 98.5 F 82 19 147/77 97 10/28/18 07:53 10/28/18 07:53 10/28/18 07:53 10/28/18 07:53 10/28/18 07:53 - Medications Medications: Current Medications Acetaminophen (Tylenol 325mg Tab) 650 mg PO Q6 PRN PRN Reason: Headache Morphine Sulfate (Morphine) 2 mg IVP Q6 PRN PRN Reason: Pain, severe (8-10) Last Admin: 10/28/18 08:06 Dose: 2 mg Ondansetron HCl (Zofran Odt) 4 mg PO Q8H PRN PRN Reason: Nausea/Vomiting Pantoprazole Sodium (Protonix Inj) 40 mg IVP DAILY JOSE Last Admin: 10/28/18 09:48 Dose: 40 mg Tramadol HCl (Ultram) 100 mg PO Q6 PRN PRN Reason: Pain, moderate (4-7) Last Admin: 10/28/18 09:48 Dose: 100 mg Zolpidem Tartrate (Ambien) 5 mg PO HS PRN PRN Reason: Insomnia Last Admin: 10/28/18 00:30 Dose: 5 mg - Labs Labs: 10/27/18 05:45 10/27/18 05:45 PT 12.0 Seconds (9.8-13.1) 10/25/18 14:02 INR 1.1 10/25/18 14:02 APTT 34.2 Seconds (25.6-37.1) 10/24/18 22:10 - Neck Exam Neck Exam: Normal Inspection - Respiratory Exam Respiratory Exam: Clear to Ausculation Bilateral, NORMAL BREATHING PATTERN - Cardiovascular Exam Cardiovascular Exam: REGULAR RHYTHM - GI/Abdominal Exam GI & Abdominal Exam: Soft, Tenderness, Normal Bowel Sounds Assessment and Plan - Assessment and Plan (Free Text) Assessment: 53 yo female with metastatic disease onc w/u in progress tissue diagnosis needed bx to be scheduled
[2018-10-28 14:28] LABS: HEMOGLOBIN A 96.8 Percent (>96.0); HEMOGLOBIN A2 2.2 Percent (1.8-3.5)
[2018-10-28] MEDS ORDERED: Ondansetron HCl 4 mg/5 ml Oral Soln PO STA (20:21)
--- NOTE | 2018-10-28 22:21 | CP.PCM.PN ---
Subjective - Date & Time of Evaluation Date of Evaluation: 10/26/18 Time of Evaluation: 17:35 Objective - Vital Signs/Intake and Output Vital Signs (last 24 hours): Temp Pulse Resp BP Pulse Ox 97.9 F 72 18 160/81 H 96 10/28/18 17:00 10/28/18 17:00 10/28/18 17:00 10/28/18 17:00 10/28/18 16:26 - Medications Medications: Current Medications Acetaminophen (Tylenol 325mg Tab) 650 mg PO Q6 PRN PRN Reason: Headache Morphine Sulfate (Morphine) 2 mg IVP Q4 PRN PRN Reason: Pain, severe (8-10) Last Admin: 10/28/18 21:34 Dose: 2 mg Ondansetron HCl (Zofran Odt) 4 mg PO Q8H PRN PRN Reason: Nausea/Vomiting Last Admin: 10/28/18 16:09 Dose: 4 mg Pantoprazole Sodium (Protonix Inj) 40 mg IVP DAILY JOSE Last Admin: 10/28/18 09:48 Dose: 40 mg Tramadol HCl (Ultram) 100 mg PO Q6 PRN PRN Reason: Pain, moderate (4-7) Last Admin: 10/28/18 16:09 Dose: 100 mg Zolpidem Tartrate (Ambien) 5 mg PO HS PRN PRN Reason: Insomnia Last Admin: 10/28/18 00:30 Dose: 5 mg - Labs Labs: 10/27/18 05:45 10/27/18 05:45 PT 12.0 Seconds (9.8-13.1) 10/25/18 14:02 INR 1.1 10/25/18 14:02 APTT 34.2 Seconds (25.6-37.1) 10/24/18 22:10 Assessment and Plan (1) Symptomatic anemia Status: Acute
--- NOTE | 2018-10-28 22:21 | CP.PCM.PN ---
Subjective - Date & Time of Evaluation Date of Evaluation: 10/27/18 Time of Evaluation: 17:25 Objective - Vital Signs/Intake and Output Vital Signs (last 24 hours): Temp Pulse Resp BP Pulse Ox 97.9 F 72 18 160/81 H 96 10/28/18 17:00 10/28/18 17:00 10/28/18 17:00 10/28/18 17:00 10/28/18 16:26 - Medications Medications: Current Medications Acetaminophen (Tylenol 325mg Tab) 650 mg PO Q6 PRN PRN Reason: Headache Morphine Sulfate (Morphine) 2 mg IVP Q4 PRN PRN Reason: Pain, severe (8-10) Last Admin: 10/28/18 21:34 Dose: 2 mg Ondansetron HCl (Zofran Odt) 4 mg PO Q8H PRN PRN Reason: Nausea/Vomiting Last Admin: 10/28/18 16:09 Dose: 4 mg Pantoprazole Sodium (Protonix Inj) 40 mg IVP DAILY JOSE Last Admin: 10/28/18 09:48 Dose: 40 mg Tramadol HCl (Ultram) 100 mg PO Q6 PRN PRN Reason: Pain, moderate (4-7) Last Admin: 10/28/18 16:09 Dose: 100 mg Zolpidem Tartrate (Ambien) 5 mg PO HS PRN PRN Reason: Insomnia Last Admin: 10/28/18 00:30 Dose: 5 mg - Labs Labs: 10/27/18 05:45 10/27/18 05:45 PT 12.0 Seconds (9.8-13.1) 10/25/18 14:02 INR 1.1 10/25/18 14:02 APTT 34.2 Seconds (25.6-37.1) 10/24/18 22:10 Assessment and Plan (1) Symptomatic anemia Status: Acute
--- NOTE | 2018-10-28 22:22 | CP.PCM.PN ---
Subjective - Date & Time of Evaluation Date of Evaluation: 10/28/18 Time of Evaluation: 17:40 Objective - Vital Signs/Intake and Output Vital Signs (last 24 hours): Temp Pulse Resp BP Pulse Ox 97.9 F 72 18 160/81 H 96 10/28/18 17:00 10/28/18 17:00 10/28/18 17:00 10/28/18 17:00 10/28/18 16:26 - Medications Medications: Current Medications Acetaminophen (Tylenol 325mg Tab) 650 mg PO Q6 PRN PRN Reason: Headache Morphine Sulfate (Morphine) 2 mg IVP Q4 PRN PRN Reason: Pain, severe (8-10) Last Admin: 10/28/18 21:34 Dose: 2 mg Ondansetron HCl (Zofran Odt) 4 mg PO Q8H PRN PRN Reason: Nausea/Vomiting Last Admin: 10/28/18 16:09 Dose: 4 mg Pantoprazole Sodium (Protonix Inj) 40 mg IVP DAILY JOSE Last Admin: 10/28/18 09:48 Dose: 40 mg Tramadol HCl (Ultram) 100 mg PO Q6 PRN PRN Reason: Pain, moderate (4-7) Last Admin: 10/28/18 16:09 Dose: 100 mg Zolpidem Tartrate (Ambien) 5 mg PO HS PRN PRN Reason: Insomnia Last Admin: 10/28/18 00:30 Dose: 5 mg - Labs Labs: 10/27/18 05:45 10/27/18 05:45 PT 12.0 Seconds (9.8-13.1) 10/25/18 14:02 INR 1.1 10/25/18 14:02 APTT 34.2 Seconds (25.6-37.1) 10/24/18 22:10 Assessment and Plan (1) Symptomatic anemia Status: Acute
[2018-10-29] MEDS: Morphine 4 MG/ML VIAL IVP PRN ×4 (06:19→23:52)
[2018-10-29 06:54] LABS: BASO # 0.1 K/uL (0.0-0.2); BASO % 0.8 % (0.0-2.0); EOS # 0.2 K/uL (0.0-0.7); EOS % 2.6 % (0.0-4.0); HEMOGLOBIN 8.5 g/dL (12.0-16.0); LYMPH # 2.8 K/uL (1.0-4.3); LYMPH % 40.9 % (20.0-40.0); MEAN CORPUSCULAR HGB CONC 34.4 g/dL (33.0-37.0); MEAN PLATELET VOLUME 8.3 fl (7.2-11.7); MONO # 0.4 K/uL (0.0-0.8); MONO % 6.5 % (0.0-10.0); NEUT # 3.3 K/uL (1.8-7.0); NEUT % 49.2 % (50.0-75.0); NRBC % 0.4 % (0.0-0.0); RBC 2.51 Mil/uL (3.80-5.20); RED CELL DISTRIBUTION WIDTH 22.9 % (11.5-14.5); WHITE BLOOD COUNT 6.7 K/uL (4.8-10.8)
[2018-10-29 07:02] LABS: ALB/GLOB RATIO 0.9 (1.0-2.1); ALBUMIN 3.5 g/dL (3.5-5.0); CALCIUM 9.1 mg/dL (8.4-10.2)
[2018-10-30] MEDS: Morphine 4 MG/ML VIAL IVP PRN ×5 (04:38→21:13)
--- NOTE | 2018-10-30 08:14 | CON ---
DATE: 10/27/2018 REFERRING DOCTOR: Dr. Mcmahon. HISTORY OF PRESENT ILLNESS: This is a very yosef 53-year-old female weakness and near syncope, complains of some weight loss. She has some dark urine as well. She was admitted for workup for occult neoplasm. Her CAT scan shows multiple metastatic lesions to bone, and masses in the pancreas and liver. The patient is lying in bed comfortable this morning, in no apparent distress. PAST MEDICAL HISTORY: As above. SURGICAL HISTORY: As above. MEDICATIONS: Has been reviewed. REVIEW OF SYSTEMS: All other systems have been reviewed and negative apart from the HPI. PHYSICAL EXAMINATION: VITAL SIGNS: Here in the hospital grossly unremarkable. GENERAL: This is a pleasant middle-aged female, lying in bed comfortably, in no apparent distress. HEENT: Head: Normocephalic, atraumatic. Eyes: Pupils are equally reactive to light bilaterally. No conjunctival pallor or icterus. NECK: Supple. Normal range of motion. No lymphadenopathy appreciated. LUNGS: Coarse breath sounds bilaterally. HEART: S1, S2, regular rhythm. ABDOMEN: Soft, nontender. Bowel sounds present. No rebound. No guarding. RECTAL: Deferred. EXTREMITIES: Pulses present bilaterally. SKIN: Warm, dry, intact. NEUROLOGIC: A and O x3. LABORATORY DATA: Labs and radiology have been reviewed. WBC is 6.3, hemoglobin 8.9, hematocrit 26.5, platelet count is normal. INR 1.1. Creatinine 1.1. Total bilirubin 1.6. AST 127, ALT 76, alk phos 494, LDH is 1100. CA-125 is 18,000, CEA is almost 700, CA 19-9 within normal limits. CAT scan shows right axillary adenopathy, widely disseminated sclerotic metastatic disease, tumor mass from the head of the pancreas, from the pancreas with , intraabdominal pelvic ascites, metastasis in the pelvis and thickening of the bladder wall, likely cystitis. ASSESSMENT AND PLAN: This is a 53-year-old female with metastatic disease, unknown primary. Oncology input appreciated, surgical input appreciated as well. From GI standpoint, may need palliative biliary stenting at some point pending diagnosis. We will follow the patient with you. Thank you for the consult. Ilia Jones MD/ PhD cc: Dr. Mcmahon
--- NOTE | 2018-10-30 11:44 | CP.PCM.PN ---
Subjective - Date & Time of Evaluation Date of Evaluation: 10/30/18 Time of Evaluation: 11:25 - Subjective Subjective: Ly's hgb is slowly trending down to 8.[address] Jones who will do a endoscopy to see if that is where she is bleeding from. He will also do a EUS as a out patient to get a biopsy of the pancreas. Pt had a Mammogram and a u/s of the breast, but no definite mass is seen. There are 2 nodules in the left breast, would get a surgical consult for evaluation and biopsy. She has adenopathy right axilla. The radiologist also feels that there is a mass in the right colon near the hepatic flexure. I have put in a call to IR to see wha would be the easiest way to biopsy the pelvic mass. Objective - Vital Signs/Intake and Output Vital Signs (last 24 hours): Temp Pulse Resp BP Pulse Ox 97.8 F 74 20 121/73 97 10/30/18 07:47 10/30/18 07:47 10/30/18 07:47 10/30/18 07:47 10/30/18 07:47 - Medications Medications: Current Medications Acetaminophen (Tylenol 325mg Tab) 650 mg PO Q6 PRN PRN Reason: Headache Morphine Sulfate (Morphine) 2 mg IVP Q4 PRN PRN Reason: Pain, severe (8-10) Last Admin: 10/30/18 08:43 Dose: 2 mg Ondansetron HCl (Zofran Odt) 4 mg PO Q6 PRN PRN Reason: Nausea/Vomiting Last Admin: 10/30/18 08:08 Dose: 4 mg Pantoprazole Sodium (Protonix Inj) 40 mg IVP DAILY JOSE Last Admin: 10/30/18 08:08 Dose: 40 mg Tramadol HCl (Ultram) 100 mg PO Q6 PRN PRN Reason: Pain, moderate (4-7) Zolpidem Tartrate (Ambien) 5 mg PO HS PRN PRN Reason: Insomnia Last Admin: 10/29/18 00:48 Dose: 5 mg - Labs Labs: 10/29/18 05:30 10/29/18 05:30 PT 12.0 Seconds (9.8-13.1) 10/25/18 14:02 INR 1.1 10/25/18 14:02 APTT 34.2 Seconds (25.6-37.1) 10/24/18 22:10
--- NOTE | 2018-10-30 12:10 | US ---
Date of service: 10/27/2018 PROCEDURE: MAMMO DIAGNOSTIC BILAT INC CAD WITH BILATERAL BREAST ULTRASOUND HISTORY: Right breast abnormality identified on chest CT 10/26/2018.. Abnormal soft tissue changes medial right breast on chest CT 10/26/2018 as well as marked right axillary adenopathy. TECHNIQUE: Bilateral full field digital mammography (2D) was performed using standard CC, ML and MLO projections. Spot compression mammography was added bilaterally multiple projections and CAD R2 was used to evaluate this mammogram. In addition, ultrasonography of all 4 quadrants of both breasts was performed including retroareolar axillary tail components. COMPARISON: No prior mammograms available if they exist. Chest abdomen and pelvis CT with contrast 10/26/2016. FINDINGS: MAMMOGRAM: Fibroglandular parenchyma is heterogeneous in density which can limit the sensitivity of this examination. Right breast: An asymmetry is question at the superior right breast as well as the right lower inner quadrant, with Ana in the posterior thirds. No definite architectural distortion or microcalcification clustering in the right breast though thickening of the medial right breast skin is identified mildly. Nipple is unremarkable as well as right axilla. CT findings are 2 posterior capture on current mammographic images. Spot-compression mammography reveals the superior right breast finding to disappear and right lower inner quadrant asymmetry to persist though appearing ill-defined. Left breast: Asymmetries are identified in the same vicinity at the left upper outer quadrant junction of middle and posterior thirds laterally. Spot-compression mammography reveals the densities in question to diminished somewhat but not completely disappear. No architectural distortion or associated microcalcification clustering is appreciated here or than the remainder of the left breast. The skin, nipple and axilla appear unremarkable. ULTRASOUND: Right breast: Trace subdermal fluid is appreciated at the 5 o'clock radius where there is reportedly a thickened area of skin, possibly a pimple. No cystic or solid masses appreciated within right breast parenchyma and there is an enlarged lymph node in the right axilla measuring 2.7 x 1.0 cm with a thin cortex measure 1.8 mm greatest thickness. There is a large fatty hilum within this lymph node. Left breast: At the 2 o'clock radius 3 cm from nipple is a hypoechoic structure with posterior acoustic enhancement and sharp peripheral margins in some projections but poor peripheral margin definition and others. It measures 1.0 x 0.6 x 0.9 cm. There is increased color Doppler blood flow surrounding it but not within it. Also at the 2 o'clock radius but 1-2 cm from the nipple is a nearly anechoic structure with extensive peripheral hypervascular changes but also prominent posterior acoustic shadowing with general peripheral lobular changes. It measures 0.6 x 0.5 x 0.7 cm. At the left axilla, there is a 2.3 x 1.1 cm lymph node with 3.5 mm cortex. It is not clear that either of these 2 foci correspond to the mammographic finding given their anterior location in the left breast. The latter finding close to the nipple exhibits such extensive posterior acoustic shadowing and related vascularity the biopsy is advised to exclude malignancy. The former lesion may be benign but due to its close proximity to the lateral lesion, biopsy of this lesion is also advised for proper tissue diagnosis. Both can be biopsied using ultrasound guided core biopsy technique. IMPRESSION: 1. A definitive mass or cyst is not seen in the right breast sonographically though a small fluid collection is subdermal on ultrasound and corresponds to an area of dermal thickening clinically. Given mammographic findings in the same location, this is felt to be a function of likely infectious process with an inflammatory process the differential diagnosis. Malignancy is not favored. Follow-up mammogram and ultrasound is recommended following therapy. 2. Ultrasound-guided core biopsy is advised at hypoechoic lesion at the 2 o'clock radius 1-2 cm from the nipple at the left breast as well as a 2nd lesion 3 cm from nipple in the same radius as discussed above. BIRADS 4 Suspicious finding (left breast) Recommendation: Biopsy is recommended. Findings discussed with Dr. Kat with written down and read back verification 10/30/2018, 11:29 a.m.. The [facility] has passed a law, effective January 17, 2014. Please be advised that we are required by this law to put this notification in all mammography result reports. This [place] Breast Density Law requires all patients and healthcare providers, regardless of breast density, to receive the information typed below: Your mammogram may show dense breast tissue as determined by the Breast Imaging Reporting and Data System established by the [employer]. Dense breast tissue is very common and is not abnormal. However, in some cases, dense breast tissue can make it harder to find cancer on a mammogram and may also be associated with a risk factor for breast cancer. Discuss this and other risks for breast cancer that pertain to your personal medical history. A report of your results was sent to your health care provider. You may also find more information about breast density at the website of the [employer], www.acr.org.
--- NOTE | 2018-10-30 15:36 | CP.PCM.CON ---
<Everette Lozano - Last Filed: 10/30/18 15:29> History of Present Illness - History of Present Illness History of Present Illness: Surgery: Dr. Lara Reason for consult: Left breast mass HPI: Patient is a 53 y/o F who presented to hospital complaining of overwhelming fatigue found to have anemia of unknown etiology. Patient states she has been feeling week for the past 2-3 weeks and was told by her family she looked pail. She complains of hematemesis about 3 weeks ago however since ceased. She also states that she has had associated epigastric abdominal pain for the past 2-3 months. She denies appetite changes or changes in her stool. She denies f/c. She reports her last mammogram was done about 5 years ago and a small mass was seen in the right breast. She states that mass was excised and found to be benign. She complains of mass in the right breast persistent since biopsy but denies palpable mass in the L breast. She denies nipple discharge. She states she has noticed masses evolving in her lateral and posterior neck. These masses are painless. She denies history of colonoscopy or EGD. PMH: , spine injury, Menarche age 10 PSH: R breast lumpectomy, x3, spine surgery Social: she reports social tobacco and alcohol use Family hx: sister w/ "mass" underwent treatments but denies hx of familial cancer Review of Systems - Constitutional Constitutional: absent: Anorexia, Chills, Fever - EENT Eyes: absent: Blurred Vision, Change in Vision Ears: absent: Disequilibrium, Dizziness Nose/Mouth/Throat: Neck Mass. absent: Tongue Swelling - Breasts Breasts: Mass. absent: Pain, Nipple Discharge - Cardiovascular Cardiovascular: absent: Chest Pain, Edema - Respiratory Respiratory: absent: Cough, Dyspnea - Gastrointestinal Gastrointestinal: Abdominal Pain, Hematemesis, Vomiting. absent: Coffee Ground Emesis, Cramping, Melena, Nausea - Genitourinary Genitourinary: absent: Hematuria, Pyuria - Musculoskeletal Musculoskeletal: Back Pain. absent: Muscle Cramps - Integumentary Integumentary: absent: Skin Ulcer, Jaundice - Neurological Neurological: absent: Dizziness, Numbness - Psychiatric Psychiatric: absent: Anxiety, Confusion - Endocrine Endocrine: absent: Excessive Sweating, Palpitations - Hematologic/Lymphatic Hematologic: Easy Bruising. absent: Easy Bleeding Past Patient History - Past Medical History & Family History Past Medical History?: No - Past Social History Smoking Status: non smoker Alcohol: Occasional Home Situation {Lives}: With Family - CARDIAC Hx Cardiac Disorders: Yes Hx Hypertension: Yes - PULMONARY Hx Asthma: Yes - HEMATOLOGICAL/ONCOLOGICAL Hx AIDS: No Hx Anemia: Yes Hx Human Immunodeficiency Virus (HIV): No - MUSCULOSKELETAL/RHEUMATOLOGICAL Hx Falls: Yes (February 2018) - PSYCHIATRIC Hx Substance Use: No (denies) - SURGICAL HISTORY Hx Surgeries: Yes ( x 3) Hx Section: Yes Other/Comment: back surgery - ANESTHESIA Hx Anesthesia: Yes Hx Anesthesia Reactions: No Hx Malignant Hyperthermia: No Meds Allergies/Adverse Reactions: Allergies Allergy/AdvReac Type Severity Reaction Status Date / Time No Known Allergies Allergy Verified 10/24/18 20:51 - Medications Medications: Current Medications Acetaminophen (Tylenol 325mg Tab) 650 mg PO Q6 PRN PRN Reason: Headache Morphine Sulfate (Morphine) 2 mg IVP Q4 PRN PRN Reason: Pain, severe (8-10) Last Admin: 10/30/18 12:53 Dose: 2 mg Ondansetron HCl (Zofran Odt) 4 mg PO Q6 PRN PRN Reason: Nausea/Vomiting Last Admin: 10/30/18 08:08 Dose: 4 mg Pantoprazole Sodium (Protonix Inj) 40 mg IVP DAILY JOSE Last Admin: 10/30/18 08:08 Dose: 40 mg Tramadol HCl (Ultram) 100 mg PO Q6 PRN PRN Reason: Pain, moderate (4-7) Zolpidem Tartrate (Ambien) 5 mg PO HS PRN PRN Reason: Insomnia Last Admin: 10/29/18 00:48 Dose: 5 mg Physical Exam - Constitutional Appears: No Acute Distress, Chronically Ill - Head Exam Head Exam: ATRAUMATIC, NORMOCEPHALIC - Eye Exam Eye Exam: EOMI, Normal appearance - ENT Exam ENT Exam: Mucous Membranes Moist - Neck Exam Neck exam: Positive for: Lymphadenopathy. Negative for: Tenderness, Thyromegaly - Respiratory Exam Respiratory Exam: NORMAL BREATHING PATTERN. absent: Respiratory Distress - Cardiovascular Exam Cardiovascular Exam: REGULAR RHYTHM. absent: Tachycardia - GI/Abdominal Exam GI & Abdominal Exam: Soft, Tenderness (epigastric ). absent: Distended, Guarding, Hernia, Rebound - Rectal Exam Rectal Exam: Deferred - Extremities Exam Extremities exam: Positive for: normal inspection. Negative for: calf tend erness - Back Exam Back exam: absent: CVA tenderness (L), CVA tenderness (R) - Neurological Exam Neurological exam: Alert, Oriented x3 - Psychiatric Exam Psychiatric exam: Normal Affect, Normal Mood - Additional Findings Additional findings: Bilateral Breast exam: R: medial dense fibrocystic like tissue palpable. no nipple eversion of skin retraction. L: no palpable mass, no nipple eversion, drainage or skin retraction Axilla: axillary lymphadenopathy L Results - Vital Signs Recent Vital Signs: Last Vital Signs Temp 97.8 F 10/30/18 07:47 Pulse 74 10/30/18 07:47 Resp 20 10/30/18 07:47 BP 121/73 10/30/18 07:47 Pulse Ox 97 10/30/18 07:47 - Labs Result Diagrams: 10/29/18 05:30 10/29/18 05:30 Assessment & Plan - Assessment and Plan (Free Text) Assessment: 53 y/o female w/ L breast mass, nonpalpable Plan: -unable to palpate breast mass, recommend radiology U/S guided core needle biopsy of breast mass and large axillary lymph node for tissue diagnosis -no acute surgical intervention at this time -will follow up pathology -patient seen and examined w/ Dr. Marco Garcia PGY4 <Patrick Lara - Last Filed: 10/30/18 16:04> History of Present Illness - History of Present Illness History of Present Illness: Patient was seen and examined at the bedside. Agree with resident's note above. Meds - Medications Medications: Current Medications Acetaminophen (Tylenol 325mg Tab) 650 mg PO Q6 PRN PRN Reason: Headache Morphine Sulfate (Morphine) 2 mg IVP Q4 PRN PRN Reason: Pain, severe (8-10) Last Admin: 10/30/18 12:53 Dose: 2 mg Ondansetron HCl (Zofran Odt) 4 mg PO Q6 PRN PRN Reason: Nausea/Vomiting Last Admin: 10/30/18 08:08 Dose: 4 mg Pantoprazole Sodium (Protonix Inj) 40 mg IVP DAILY JOSE Last Admin: 10/30/18 08:08 Dose: 40 mg Tramadol HCl (Ultram) 100 mg PO Q6 PRN PRN Reason: Pain, moderate (4-7) Zolpidem Tartrate (Ambien) 5 mg PO HS PRN PRN Reason: Insomnia Last Admin: 10/29/18 00:48 Dose: 5 mg Results - Vital Signs Recent Vital Signs: Last Vital Signs Temp 97.9 F 10/30/18 16:00 Pulse 86 10/30/18 16:00 Resp 18 10/30/18 16:00 BP 127/77 10/30/18 16:00 Pulse Ox 97 10/30/18 16:00 - Labs Result Diagrams: 10/29/18 05:30 10/29/18 05:30
[2018-10-31] MEDS ORDERED: Morphine 4 MG/ML VIAL IVP ONE (00:05)
[2018-10-31] MEDS: Morphine 4 MG/ML VIAL IVP PRN ×4 (05:08→22:59)
--- NOTE | 2018-10-31 07:45 | CP.PCM.PN ---
<Alex Mora - Last Filed: 10/31/18 07:41> Subjective - Date & Time of Evaluation Date of Evaluation: 10/31/18 Time of Evaluation: 07:41 - Subjective Subjective: Surgery progress note - Dr. Lara Patient seen and evaluated at bedside this AM. States she had episodes of vomiting overnight and experienced nausea. States that she experiences f/c as well. Denies sob/cp. Experienced abdominal pain overnight relieved with pain medication. NPO confirmed as she is scheduled for a procedure today. Objective - Vital Signs/Intake and Output Vital Signs (last 24 hours): Temp Pulse Resp BP Pulse Ox 97.4 F L 84 19 120/74 100 10/31/18 00:44 10/31/18 00:44 10/31/18 00:44 10/31/18 02:26 10/31/18 00:44 - Medications Medications: Current Medications Acetaminophen (Tylenol 325mg Tab) 650 mg PO Q6 PRN PRN Reason: Headache Morphine Sulfate (Morphine) 2 mg IVP Q4 PRN PRN Reason: Pain, severe (8-10) Last Admin: 10/31/18 05:08 Dose: 2 mg Ondansetron HCl (Zofran Odt) 4 mg PO Q6 PRN PRN Reason: Nausea/Vomiting Last Admin: 10/30/18 21:17 Dose: 4 mg Pantoprazole Sodium (Protonix Inj) 40 mg IVP DAILY JOSE Last Admin: 10/30/18 08:08 Dose: 40 mg Tramadol HCl (Ultram) 100 mg PO Q6 PRN PRN Reason: Pain, moderate (4-7) Last Admin: 10/30/18 23:54 Dose: 100 mg Zolpidem Tartrate (Ambien) 5 mg PO HS PRN PRN Reason: Insomnia Last Admin: 10/29/18 00:48 Dose: 5 mg - Labs Labs: 10/29/18 05:30 10/29/18 05:30 PT 12.0 Seconds (9.8-13.1) 10/25/18 14:02 INR 1.1 10/25/18 14:02 APTT 34.2 Seconds (25.6-37.1) 10/24/18 22:10 - Constitutional Appears: Non-toxic, Chronically Ill - Head Exam Head Exam: ATRAUMATIC, NORMOCEPHALIC - Eye Exam Eye Exam: EOMI, Normal appearance - ENT Exam ENT Exam: Mucous Membranes Moist - Neck Exam Neck Exam: Lymphadenopathy. absent: Tenderness, Thyromegaly - Respiratory Exam Respiratory Exam: NORMAL BREATHING PATTERN. absent: Respiratory Distress - Cardiovascular Exam Cardiovascular Exam: REGULAR RHYTHM. absent: Tachycardia - GI/Abdominal Exam GI & Abdominal Exam: Soft, Tenderness (epigastric). absent: Distended, Guarding, Hernia, Rebound - Rectal Exam Rectal Exam: absent: Deferred - Extremities Exam Extremities Exam: Normal Capillary Refill, Normal Inspection. absent: Calf Tenderness - Back Exam Back Exam: absent: CVA tenderness (L), CVA tenderness (R) - Neurological Exam Neurological Exam: Alert, Awake, Oriented x3 - Psychiatric Exam Psychiatric exam: Normal Affect, Normal Mood - Additional Findings Additional findings: Bilateral Breast exam: R: medial dense fibrocystic like tissue palpable. no nipple eversion of skin retraction. L: no palpable mass, no nipple eversion, drainage or skin retraction Axilla: axillary lymphadenopathy L Assessment and Plan - Assessment and Plan (Free Text) Assessment: 53 y/o female w/ L breast mass, nonpalpable Plan: Patient seen and evaluated Unable to palpate breast mass No acute surgical intervention at this time F/u IR US guided core needle bx Further recs per Dr. Marco Mora PGY1 <Blake Hartman - Last Filed: 10/31/18 09:29> Objective - Vital Signs/Intake and Output Vital Signs (last 24 hours): Temp Pulse Resp BP Pulse Ox 97.5 F L 81 19 135/77 95 10/31/18 07:46 10/31/18 07:46 10/31/18 07:46 10/31/18 07:46 10/31/18 07:46 - Medications Medications: Current Medications Acetaminophen (Tylenol 325mg Tab) 650 mg PO Q6 PRN PRN Reason: Headache Morphine Sulfate (Morphine) 2 mg IVP Q4 PRN PRN Reason: Pain, severe (8-10) Last Admin: 10/31/18 05:08 Dose: 2 mg Ondansetron HCl (Zofran Odt) 4 mg PO Q6 PRN PRN Reason: Nausea/Vomiting Last Admin: 10/31/18 08:16 Dose: 4 mg Pantoprazole Sodium (Protonix Inj) 40 mg IVP DAILY JOSE Last Admin: 10/31/18 08:16 Dose: 40 mg Tramadol HCl (Ultram) 100 mg PO Q6 PRN PRN Reason: Pain, moderate (4-7) Last Admin: 10/30/18 23:54 Dose: 100 mg Zolpidem Tartrate (Ambien) 5 mg PO HS PRN PRN Reason: Insomnia Last Admin: 10/29/18 00:48 Dose: 5 mg - Labs Labs: 10/29/18 05:30 10/29/18 05:30 PT 12.0 Seconds (9.8-13.1) 10/25/18 14:02 INR 1.1 10/25/18 14:02 APTT 34.2 Seconds (25.6-37.1) 10/24/18 22:10 Assessment and Plan - Assessment and Plan (Free Text) Plan: seen at bedside with residents agree with notes. pt without any acute complaints. 53yo F with metastatic disease unknown primary recommend IR biopsy of breast mass and axillary lymph nodes
--- NOTE | 2018-10-31 09:02 | CP.PCM.PN ---
Subjective - Date & Time of Evaluation Date of Evaluation: 10/30/18 Time of Evaluation: 14:00 - Subjective Subjective: no overnight events Objective - Vital Signs/Intake and Output Vital Signs (last 24 hours): Temp Pulse Resp BP Pulse Ox 97.5 F L 81 19 135/77 95 10/31/18 07:46 10/31/18 07:46 10/31/18 07:46 10/31/18 07:46 10/31/18 07:46 - Medications Medications: Current Medications Acetaminophen (Tylenol 325mg Tab) 650 mg PO Q6 PRN PRN Reason: Headache Morphine Sulfate (Morphine) 2 mg IVP Q4 PRN PRN Reason: Pain, severe (8-10) Last Admin: 10/31/18 05:08 Dose: 2 mg Ondansetron HCl (Zofran Odt) 4 mg PO Q6 PRN PRN Reason: Nausea/Vomiting Last Admin: 10/31/18 08:16 Dose: 4 mg Pantoprazole Sodium (Protonix Inj) 40 mg IVP DAILY JOSE Last Admin: 10/31/18 08:16 Dose: 40 mg Tramadol HCl (Ultram) 100 mg PO Q6 PRN PRN Reason: Pain, moderate (4-7) Last Admin: 10/30/18 23:54 Dose: 100 mg Zolpidem Tartrate (Ambien) 5 mg PO HS PRN PRN Reason: Insomnia Last Admin: 10/29/18 00:48 Dose: 5 mg - Labs Labs: 10/29/18 05:30 10/29/18 05:30 PT 12.0 Seconds (9.8-13.1) 10/25/18 14:02 INR 1.1 10/25/18 14:02 APTT 34.2 Seconds (25.6-37.1) 10/24/18 22:10 - Head Exam Head Exam: NORMOCEPHALIC - Neck Exam Neck Exam: Normal Inspection - Respiratory Exam Respiratory Exam: Clear to Ausculation Bilateral, NORMAL BREATHING PATTERN - Cardiovascular Exam Cardiovascular Exam: REGULAR RHYTHM - GI/Abdominal Exam GI & Abdominal Exam: Soft, Normal Bowel Sounds Assessment and Plan - Assessment and Plan (Free Text) Assessment: 53 yo female with metastatic disease onc input bx pending
--- NOTE | 2018-10-31 09:46 | CP.PCM.PN ---
Subjective - Date & Time of Evaluation Date of Evaluation: 10/31/18 Time of Evaluation: 09:39 - Subjective Subjective: Pt is still c/o back pain and weakness. The hgb is down to 8.5gms. . Spoke to surgeons who feel that the left breast nodules are too small and they cannot feel them, so it would not be possible to biopsy them. IR does not do breast biopsies. I was informed by the nurse that pt is scheduled for an EGD today, to look for signs of bleeding. IR will do a abdominal paracentesis for cytology and also a right axillary node biopsy. Objective - Vital Signs/Intake and Output Vital Signs (last 24 hours): Temp Pulse Resp BP Pulse Ox 97.5 F L 81 19 135/77 95 10/31/18 07:46 10/31/18 07:46 10/31/18 07:46 10/31/18 07:46 10/31/18 07:46 - Medications Medications: Current Medications Acetaminophen (Tylenol 325mg Tab) 650 mg PO Q6 PRN PRN Reason: Headache Morphine Sulfate (Morphine) 2 mg IVP Q4 PRN PRN Reason: Pain, severe (8-10) Last Admin: 10/31/18 05:08 Dose: 2 mg Ondansetron HCl (Zofran Odt) 4 mg PO Q6 PRN PRN Reason: Nausea/Vomiting Last Admin: 10/31/18 08:16 Dose: 4 mg Pantoprazole Sodium (Protonix Inj) 40 mg IVP DAILY JOSE Last Admin: 10/31/18 08:16 Dose: 40 mg Tramadol HCl (Ultram) 100 mg PO Q6 PRN PRN Reason: Pain, moderate (4-7) Last Admin: 10/30/18 23:54 Dose: 100 mg Zolpidem Tartrate (Ambien) 5 mg PO HS PRN PRN Reason: Insomnia Last Admin: 10/29/18 00:48 Dose: 5 mg - Labs Labs: 10/29/18 05:30 10/29/18 05:30 PT 12.0 Seconds (9.8-13.1) 10/25/18 14:02 INR 1.1 10/25/18 14:02 APTT 34.2 Seconds (25.6-37.1) 10/24/18 22:10
[2018-10-31] MEDS ORDERED: Lidocaine 2% MPF (5 ml) Inj ONE (11:35)
--- NOTE | 2018-10-31 11:52 | PCM.SURG1 ---
Surgeon's Initial Post Op Note - Surgeon's Notes Surgeon: Hector Booth MD Security Developer: NONE Type of Anesthesia: Local Pre-Operative Diagnosis: Axillary lymphadenopathy, pelvic mass Operative Findings: US showed irregular right axillary lymph node Post-Operative Diagnosis: Axillary lymphadenopathy, pelvic mass Operation Performed: US guided core biopsy. Two 20-g core specimen removed. Specimen/Specimens Removed: 20-g core x 2, FNA x 1 Estimated Blood Loss: EBL {In ML}: 1 Blood Products Given: N/A Drains Used: No Drains Post-Op Condition: Fair Date of Surgery/Procedure: 10/31/18 Time of Surgery/Procedure: 11:50
[2018-10-31 15:19] LABS: HEMOGLOBIN 7.4 g/dL (12.0-16.0); MEAN CELL VOLUME 100.5 fl (81.0-99.0); MEAN CORPUSCULAR HEMOGLOBIN 34.1 pg (27.0-31.0); RBC 2.17 Mil/uL (3.80-5.20); RED CELL DISTRIBUTION WIDTH 23.1 % (11.5-14.5); WHITE BLOOD COUNT 5.9 K/uL (4.8-10.8)
[2018-10-31 15:40] LABS: ALBUMIN 3.8 g/dL (3.5-5.0); CALCIUM 9.4 mg/dL (8.4-10.2)
--- NOTE | 2018-11-01 00:14 | CP.PCM.PN ---
Subjective - Date & Time of Evaluation Date of Evaluation: 10/30/18 Time of Evaluation: 18:50 Objective - Vital Signs/Intake and Output Vital Signs (last 24 hours): Temp Pulse Resp BP Pulse Ox 98.1 F 74 20 122/70 95 10/31/18 23:59 10/31/18 23:59 10/31/18 23:59 10/31/18 23:59 10/31/18 23:59 Intake and Output: 10/31/18 11/01/18 18:59 06:59 Intake Total 350 Balance 350 - Medications Medications: Current Medications Acetaminophen (Tylenol 325mg Tab) 650 mg PO Q6 PRN PRN Reason: Headache Alprazolam (Xanax) 0.5 mg PO Q12 PRN PRN Reason: Anxiety Last Admin: 10/31/18 20:45 Dose: 0.5 mg Morphine Sulfate (Morphine) 2 mg IVP Q4 PRN PRN Reason: Pain, severe (8-10) Last Admin: 10/31/18 22:59 Dose: 2 mg Ondansetron HCl (Zofran Odt) 4 mg PO Q6 PRN PRN Reason: Nausea/Vomiting Last Admin: 10/31/18 08:16 Dose: 4 mg Pantoprazole Sodium (Protonix Inj) 40 mg IVP DAILY JOSE Last Admin: 10/31/18 08:16 Dose: 40 mg Tramadol HCl (Ultram) 100 mg PO Q6 PRN PRN Reason: Pain, moderate (4-7) Last Admin: 10/31/18 20:00 Dose: 100 mg Zolpidem Tartrate (Ambien) 5 mg PO HS PRN PRN Reason: Insomnia Last Admin: 10/29/18 00:48 Dose: 5 mg - Labs Labs: 10/31/18 14:49 10/31/18 14:49 PT 12.0 Seconds (9.8-13.1) 10/25/18 14:02 INR 1.1 10/25/18 14:02 APTT 34.2 Seconds (25.6-37.1) 10/24/18 22:10 Assessment and Plan (1) Symptomatic anemia Status: Acute
--- NOTE | 2018-11-01 00:14 | CP.PCM.PN ---
Subjective - Date & Time of Evaluation Date of Evaluation: 10/29/18 Time of Evaluation: 17:45 Objective - Vital Signs/Intake and Output Vital Signs (last 24 hours): Temp Pulse Resp BP Pulse Ox 98.1 F 74 20 122/70 95 10/31/18 23:59 10/31/18 23:59 10/31/18 23:59 10/31/18 23:59 10/31/18 23:59 Intake and Output: 10/31/18 11/01/18 18:59 06:59 Intake Total 350 Balance 350 - Medications Medications: Current Medications Acetaminophen (Tylenol 325mg Tab) 650 mg PO Q6 PRN PRN Reason: Headache Alprazolam (Xanax) 0.5 mg PO Q12 PRN PRN Reason: Anxiety Last Admin: 10/31/18 20:45 Dose: 0.5 mg Morphine Sulfate (Morphine) 2 mg IVP Q4 PRN PRN Reason: Pain, severe (8-10) Last Admin: 10/31/18 22:59 Dose: 2 mg Ondansetron HCl (Zofran Odt) 4 mg PO Q6 PRN PRN Reason: Nausea/Vomiting Last Admin: 10/31/18 08:16 Dose: 4 mg Pantoprazole Sodium (Protonix Inj) 40 mg IVP DAILY JOSE Last Admin: 10/31/18 08:16 Dose: 40 mg Tramadol HCl (Ultram) 100 mg PO Q6 PRN PRN Reason: Pain, moderate (4-7) Last Admin: 10/31/18 20:00 Dose: 100 mg Zolpidem Tartrate (Ambien) 5 mg PO HS PRN PRN Reason: Insomnia Last Admin: 10/29/18 00:48 Dose: 5 mg - Labs Labs: 10/31/18 14:49 10/31/18 14:49 PT 12.0 Seconds (9.8-13.1) 10/25/18 14:02 INR 1.1 10/25/18 14:02 APTT 34.2 Seconds (25.6-37.1) 10/24/18 22:10 Assessment and Plan (1) Symptomatic anemia Status: Acute
--- NOTE | 2018-11-01 00:15 | CP.PCM.PN ---
Subjective - Date & Time of Evaluation Date of Evaluation: 10/31/18 Time of Evaluation: 18:35 Objective - Vital Signs/Intake and Output Vital Signs (last 24 hours): Temp Pulse Resp BP Pulse Ox 98.1 F 74 20 122/70 95 10/31/18 23:59 10/31/18 23:59 10/31/18 23:59 10/31/18 23:59 10/31/18 23:59 Intake and Output: 10/31/18 11/01/18 18:59 06:59 Intake Total 350 Balance 350 - Medications Medications: Current Medications Acetaminophen (Tylenol 325mg Tab) 650 mg PO Q6 PRN PRN Reason: Headache Alprazolam (Xanax) 0.5 mg PO Q12 PRN PRN Reason: Anxiety Last Admin: 10/31/18 20:45 Dose: 0.5 mg Morphine Sulfate (Morphine) 2 mg IVP Q4 PRN PRN Reason: Pain, severe (8-10) Last Admin: 10/31/18 22:59 Dose: 2 mg Ondansetron HCl (Zofran Odt) 4 mg PO Q6 PRN PRN Reason: Nausea/Vomiting Last Admin: 10/31/18 08:16 Dose: 4 mg Pantoprazole Sodium (Protonix Inj) 40 mg IVP DAILY JOSE Last Admin: 10/31/18 08:16 Dose: 40 mg Tramadol HCl (Ultram) 100 mg PO Q6 PRN PRN Reason: Pain, moderate (4-7) Last Admin: 10/31/18 20:00 Dose: 100 mg Zolpidem Tartrate (Ambien) 5 mg PO HS PRN PRN Reason: Insomnia Last Admin: 10/29/18 00:48 Dose: 5 mg - Labs Labs: 10/31/18 14:49 10/31/18 14:49 PT 12.0 Seconds (9.8-13.1) 10/25/18 14:02 INR 1.1 10/25/18 14:02 APTT 34.2 Seconds (25.6-37.1) 10/24/18 22:10 Assessment and Plan (1) Symptomatic anemia Status: Acute
[2018-11-01] MEDS: Morphine 4 MG/ML VIAL IVP PRN ×3 (06:02→15:38)
[2018-11-01 06:38] LABS: HEMOGLOBIN 9.5 g/dL (12.0-16.0); MEAN CELL VOLUME 96.8 fl (81.0-99.0); MEAN CORPUSCULAR HEMOGLOBIN 32.8 pg (27.0-31.0); MEAN CORPUSCULAR HGB CONC 33.9 g/dL (33.0-37.0); RBC 2.9 Mil/uL (3.80-5.20); RED CELL DISTRIBUTION WIDTH 24.4 % (11.5-14.5); WHITE BLOOD COUNT 6.9 K/uL (4.8-10.8)
[2018-11-01 06:52] LABS: CALCIUM 9.6 mg/dL (8.4-10.2)
--- NOTE | 2018-11-01 09:50 | CP.PCM.PN ---
Subjective - Date & Time of Evaluation Date of Evaluation: 11/01/18 Time of Evaluation: 09:47 - Subjective Subjective: pt at bedside, no overnight events. pt without any acute complaints. s/p core needle biopsy of right breast lesion. Objective - Vital Signs/Intake and Output Vital Signs (last 24 hours): Temp Pulse Resp BP Pulse Ox 97.6 F 77 19 119/68 95 11/01/18 08:18 11/01/18 08:18 11/01/18 08:18 11/01/18 08:18 11/01/18 08:18 Intake and Output: 11/01/18 11/01/18 06:59 18:59 Intake Total 350 Balance 350 - Medications Medications: Current Medications Acetaminophen (Tylenol 325mg Tab) 650 mg PO Q6 PRN PRN Reason: Headache Alprazolam (Xanax) 0.5 mg PO Q12 PRN PRN Reason: Anxiety Last Admin: 10/31/18 20:45 Dose: 0.5 mg Morphine Sulfate (Morphine) 2 mg IVP Q4 PRN PRN Reason: Pain, severe (8-10) Last Admin: 11/01/18 06:02 Dose: 2 mg Ondansetron HCl (Zofran Odt) 4 mg PO Q6 PRN PRN Reason: Nausea/Vomiting Last Admin: 11/01/18 08:38 Dose: 4 mg Pantoprazole Sodium (Protonix Inj) 40 mg IVP DAILY JOSE Last Admin: 11/01/18 08:38 Dose: 40 mg Tramadol HCl (Ultram) 100 mg PO Q6 PRN PRN Reason: Pain, moderate (4-7) Last Admin: 11/01/18 08:44 Dose: 100 mg Zolpidem Tartrate (Ambien) 5 mg PO HS PRN PRN Reason: Insomnia Last Admin: 10/29/18 00:48 Dose: 5 mg - Labs Labs: 11/01/18 06:00 11/01/18 06:00 PT 12.0 Seconds (9.8-13.1) 10/25/18 14:02 INR 1.1 10/25/18 14:02 APTT 34.2 Seconds (25.6-37.1) 10/24/18 22:10 - Constitutional Appears: No Acute Distress - Head Exam Head Exam: ATRAUMATIC, NORMAL INSPECTION, NORMOCEPHALIC - Eye Exam Eye Exam: Conjunctival injection, EOMI, Normal appearance Pupil Exam: PERRL - Respiratory Exam Respiratory Exam: NORMAL BREATHING PATTERN - Additional Findings Additional findings: s/p core needle biopsy of right breast lesion, dressing in place c/d/i Assessment and Plan - Assessment and Plan (Free Text) Assessment: 53yo F with metastatic disease of unknown etiliology -f/u core needle biopsy results -no acute surgical intervention stable for dc
--- NOTE | 2018-11-01 12:34 | CP.PCM.PN ---
Subjective - Date & Time of Evaluation Date of Evaluation: 10/31/18 Time of Evaluation: 09:00 - Subjective Subjective: no overnight events Objective - Vital Signs/Intake and Output Vital Signs (last 24 hours): Temp Pulse Resp BP Pulse Ox 97.6 F 77 19 119/68 95 11/01/18 08:18 11/01/18 08:18 11/01/18 08:18 11/01/18 08:18 11/01/18 08:18 Intake and Output: 11/01/18 11/01/18 06:59 18:59 Intake Total 350 Balance 350 - Medications Medications: Current Medications Acetaminophen (Tylenol 325mg Tab) 650 mg PO Q6 PRN PRN Reason: Headache Alprazolam (Xanax) 0.5 mg PO Q12 PRN PRN Reason: Anxiety Last Admin: 10/31/18 20:45 Dose: 0.5 mg Morphine Sulfate (Morphine) 2 mg IVP Q4 PRN PRN Reason: Pain, severe (8-10) Last Admin: 11/01/18 11:15 Dose: 2 mg Ondansetron HCl (Zofran Odt) 4 mg PO Q6 PRN PRN Reason: Nausea/Vomiting Last Admin: 11/01/18 08:38 Dose: 4 mg Pantoprazole Sodium (Protonix Inj) 40 mg IVP DAILY JOSE Last Admin: 11/01/18 08:38 Dose: 40 mg Tramadol HCl (Ultram) 100 mg PO Q6 PRN PRN Reason: Pain, moderate (4-7) Last Admin: 11/01/18 08:44 Dose: 100 mg Zolpidem Tartrate (Ambien) 5 mg PO HS PRN PRN Reason: Insomnia Last Admin: 10/29/18 00:48 Dose: 5 mg - Labs Labs: 11/01/18 06:00 11/01/18 06:00 PT 12.0 Seconds (9.8-13.1) 10/25/18 14:02 INR 1.1 10/25/18 14:02 APTT 34.2 Seconds (25.6-37.1) 10/24/18 22:10 - Head Exam Head Exam: NORMOCEPHALIC - Respiratory Exam Respiratory Exam: Clear to Ausculation Bilateral, NORMAL BREATHING PATTERN - Cardiovascular Exam Cardiovascular Exam: REGULAR RHYTHM - GI/Abdominal Exam GI & Abdominal Exam: Soft, Normal Bowel Sounds Assessment and Plan - Assessment and Plan (Free Text) Assessment: 53 yo female with metastatic disease for MRI today onc work up
[2018-11-01 16:10] VITALS: BP 119/68; PULSE 77; RESP 19; TEMP 97.6; O2SAT 95
--- NOTE | 2018-11-02 09:28 | CP.PCM.DIS ---
Provider - Provider Date of Admission: 10/24/18 23:04 Attending physician: Jeannette Sinha MD Consults: 10/25/18 13:39 Hematology Oncology Consult Routine Comment: Consulting Provider: Demetrius Cannon Consulting Physician: Demetrius Cannon Reason for Consult: Anemia, unclear etiology, elevated MCV 10/26/18 16:42 Gastroenterology Consult Routine Comment: Consulting Provider: Sheldon Hoover Consulting Physician: Sheldon Hoover Reason for Consult: Pancreatic Mass, Possible mets 10/27/18 11:33 Gastroenterology Consult Routine Comment: Consulting Provider: Ilia Mauricio Consulting Physician: Ilia Mauricio Reason for Consult: Anemia 10/30/18 12:58 Urology Consult Routine Comment: Consulting Provider: Ulises Nichols Consulting Physician: Ulises Nichols Reason for Consult: Metastatic disease with bladder wall thickening, hydrpnephrosis 10/30/18 14:47 Surgery [General Surgery Consult] Routine Comment: Consulting Provider: Patrick Lara Consulting Physician: Patrick Lara Reason for Consult: Left breast mass, needs biopsy, metastatic disease 10/31/18 09:14 Physician Consult Routine Comment: right axillary node biopsy Consulting Provider: Hector Booth Consulting Physician: Hector Booth Reason for Consult: right axilla nodes biopsy Additional Comments: 53 yrs old with mammogrm shoeing 2 nodules in the left breast, buit she has adenopathy in the left axilla. She has a pancreatic and right colon mass, and a pelvic mass, diffuse skeletal metastasis and anemia, Would appreciate any help in securing a tissue for diagnosis 10/31/18 09:53 Physician Consult Routine Comment: abdominal paracentesis Consulting Provider: Hector Booth Consulting Physician: Hector Booth Reason for Consult: pt wih diffuse metastasis Additional Comments: ascitic fluid for cytology and chemistry Time Spent in preparation of Discharge (in minutes): 25 Diagnosis - Discharge Diagnosis (1) Symptomatic anemia Status: Acute (2) Malignancy Status: Acute (3) Ascites Status: Acute (4) Cocaine abuse Status: Acute Hospital Course - Lab Results Lab Results: Most Recent Lab Values WBC 6.9 K/uL (4.8-10.8) 11/01/18 06:00 RBC 2.90 Mil/uL (3.80-5.20) L 11/01/18 06:00 Hgb 9.5 g/dL (12.0-16.0) L D 11/01/18 06:00 Hct 28.1 % (34.0-47.0) L 11/01/18 06:00 MCV 96.8 fl (81.0-99.0) D 11/01/18 06:00 MCH 32.8 pg (27.0-31.0) H 11/01/18 06:00 MCHC 33.9 g/dL (33.0-37.0) 11/01/18 06:00 RDW 24.4 % (11.5-14.5) H 11/01/18 06:00 Plt Count 175 K/uL (130-400) 11/01/18 06:00 MPV 8.3 fl (7.2-11.7) 10/29/18 05:30 Neut % (Auto) 49.2 % (50.0-75.0) L 10/29/18 05:30 Lymph % (Auto) 40.9 % (20.0-40.0) H 10/29/18 05:30 [place] % (Auto) 6.5 % (0.0-10.0) 10/29/18 05:30 Eos % (Auto) 2.6 % (0.0-4.0) 10/29/18 05:30 Baso % (Auto) 0.8 % (0.0-2.0) 10/29/18 05:30 Neut # (Auto) 3.3 K/uL (1.8-7.0) 10/29/18 05:30 Lymph # (Auto) 2.8 K/uL (1.0-4.3) 10/29/18 05:30 [place] # (Auto) 0.4 K/uL (0.0-0.8) 10/29/18 05:30 Eos # (Auto) 0.2 K/uL (0.0-0.7) 10/29/18 05:30 Baso # (Auto) 0.1 K/uL (0.0-0.2) 10/29/18 05:30 Retic Count 9.2 % (0.5-1.5) H 10/24/18 22:10 Hemoglobin A 96.8 Percent (>96.0) 10/26/18 12:38 Hemoglobin A2 2.2 Percent (1.8-3.5) 10/26/18 12:38 Hemoglobin C 0.0 Percent (0.0-0.0) 10/26/18 12:38 Hemoglobin F () <1.0 Percent (<2.0) 10/26/18 12:38 Hemoglobin S 0.0 Percent (0.0-0.0) 10/26/18 12:38 Variant Hemoglobin 0.0 Percent (0.0-0.0) 10/26/18 12:38 Hemoglobinopathy Red Blood Count 2.82 Mill/mcL (3.80-5.10) L 10/26/18 12:38 Hemoglobinopathy Hct 27.9 % (35.0-45.0) L 10/26/18 12:38 Hemoglobinopathy Hgb 9.3 g/dL (11.7-15.5) L 10/26/18 12:38 Hemoglobinopathy MCV 99.2 fL (80.0-100.0) 10/26/18 12:38 Hemoglobinopathy MCH 33.1 pg (27.0-33.0) H 10/26/18 12:38 Hemoglobinopathy RDW 24.5 % (11.0-15.0) H 10/26/18 12:38 Hemoglobinopathy Interp See note 10/26/18 12:38 Haptoglobin < 20.0 mg/dL (30.0-200.0) L 10/24/18 23:04 PT 12.0 Seconds (9.8-13.1) 10/25/18 14:02 INR 1.1 10/25/18 14:02 APTT 34.2 Seconds (25.6-37.1) 10/24/18 22:10 pO2 31 mm/Hg (30-55) 10/24/18 22:42 VBG pH 7.40 (7.32-7.43) 10/24/18 22:42 VBG pCO2 56 mmHg (40-60) 10/24/18 22:42 VBG HCO3 30.1 mmol/L 10/24/18 22:42 VBG Total CO2 36.4 mmol/L (22-28) H 10/24/18 22:42 VBG O2 Sat (Calc) 64.8 % (40-65) 10/24/18 22:42 VBG Base Excess 8.0 mmol/L (0.0-2.0) H 10/24/18 22:42 VBG Potassium 4.1 mmol/L (3.6-5.2) 10/24/18 22:42 Sodium 137.0 mmol/L (132-148) 10/24/18 22:42 Chloride 104.0 mmol/L (98-107) 10/24/18 22:42 Glucose 96 mg/dL (65-105) 10/24/18 22:42 Lactate 0.5 mmol/L (0.7-2.1) L 10/24/18 22:42 FiO2 21.0 % 10/24/18 22:42 Sodium 139 mmol/l (132-148) 11/01/18 06:00 Potassium 4.4 MMOL/L (3.6-5.0) 11/01/18 06:00 Chloride 95 mmol/L (98-107) L 11/01/18 06:00 Carbon Dioxide 35 mmol/L (22-30) H 11/01/18 06:00 Anion Gap 13 (10-20) 11/01/18 06:00 BUN 30 mg/dl (7-17) H 11/01/18 06:00 Creatinine 1.2 mg/dl (0.7-1.2) 11/01/18 06:00 Est GFR ( Amer) 57 11/01/18 06:00 Est GFR (Non-Af Amer) 47 11/01/18 06:00 Random Glucose 96 mg/dL (65-105) 11/01/18 06:00 Calcium 9.6 mg/dL (8.4-10.2) 11/01/18 06:00 Phosphorus 4.6 mg/dl (2.5-4.5) H 10/24/18 22:10 Magnesium 2.0 MG/DL (1.6-2.3) 10/24/18 22:10 Iron 189 ug/dL (37-170) H 10/24/18 23:13 TIBC 385 ug/dL (250-450) 10/24/18 23:13 % Saturation 49 % (20-55) 10/24/18 23:13 Ferritin 75.5 ng/Ml (11.1-264.0) 10/24/18 23:13 Total Bilirubin 2.1 mg/dl (0.2-1.3) H 11/01/18 06:00 AST 154 U/L (14-36) H D 11/01/18 06:00 ALT 101 U/L (9-52) H D 11/01/18 06:00 Alkaline Phosphatase 604 U/L (38-126) H D 11/01/18 06:00 Lactate Dehydrogenase 1156 U/L (313-618) H 10/26/18 08:40 Troponin I < 0.0120 ng/mL (0.00-0.120) 10/24/18 22:10 NT-Pro-B Natriuret Pep 242 pg/ml (0-900) 10/24/18 22:10 Total Protein 7.9 G/DL (6.3-8.2) 11/01/18 06:00 Total Protein (PEP) 6.9 g/dL (6.1-8.1) 10/26/18 08:40 Albumin 4.0 g/dL (3.5-5.0) 11/01/18 06:00 Albumin (PEP) 3.5 g/dL (3.8-4.8) L 10/26/18 08:40 Globulin 3.9 gm/dL (2.2-3.9) 11/01/18 06:00 Albumin/Globulin Ratio 1.0 (1.0-2.1) 11/01/18 06:00 Tmxza-7-Ajniyyuxq 0.3 g/dL (0.2-0.3) 10/26/18 08:40 Dwkxy-1-Mkluvkzat 0.6 g/dL (0.5-0.9) 10/26/18 08:40 Domb-0-Juguoyxj 0.5 g/dL (0.4-0.6) 10/26/18 08:40 Qbvs-7-Iaqtvgyg 0.5 g/dL (0.2-0.5) 10/26/18 08:40 Gamma Globulins 1.4 g/dL (0.8-1.7) 10/26/18 08:40 Abnorm Protein Band 1 TEST NOT PERFORMED 10/26/18 08:40 Abnorm Protein Band 2 TEST NOT PERFORMED 10/26/18 08:40 Abnorm Protein Band 3 TEST NOT PERFORMED 10/26/18 08:40 Carcinoembryonic Ag 697.0 ng/mL (0-3.0) H 10/26/18 09:12 CA 19-9 Antigen 16.4 U/mL (0-37) 10/26/18 09:12 CA 125 Antigen 20200 U/mL (0-35) H 10/26/18 09:12 Vitamin B12 > 1000 pg/mL (239-931) H 10/24/18 23:13 Folate 15.2 ng/mL 10/24/18 23:13 Free T4 1.05 ng/dL (0.78-2.19) 10/24/18 22:10 Total T3 3.78 nmol/L (1.49-2.60) H 10/24/18 22:10 TSH 3rd Generation 4.82 mIU/ML (0.46-4.68) H 10/24/18 22:10 Venous Blood Potassium 4.1 mmol/L (3.6-5.2) 10/24/18 22:42 Urine Color Yellow (YELLOW) 10/25/18 00:15 Urine Clarity Slighty-cloudy (Clear) 10/25/18 00:15 Urine pH 6.0 (5.0-8.0) 10/25/18 00:15 Ur Specific [place] 1.011 (1.003-1.030) 10/25/18 00:15 Urine Protein Negative mg/dL (NEGATIVE) 10/25/18 00:15 Urine Glucose (UA) Neg mg/dL (NEGATIVE) 10/25/18 00:15 Urine Ketones Negative mg/dL (NEGATIVE) 10/25/18 00:15 Urine Blood Negative (NEGATIVE) 10/25/18 00:15 Urine Nitrate Negative (NEGATIVE) 10/25/18 00:15 Urine Bilirubin Negative (NEGATIVE) 10/25/18 00:15 Urine Urobilinogen 0.2-1.0 mg/dL (0.2-1.0) 10/25/18 00:15 Ur Leukocyte Esterase Neg [place]/uL (Negative) 10/25/18 00:15 Urine Microscopic WBC 1 /hpf (0-5) 10/25/18 00:15 Ur Squamous Epith Cells 4 /hpf (0-5) 10/25/18 00:15 Urine Bacteria Rare (<OCC) 10/25/18 00:15 Hyaline Casts 0-2 /hpf (0-2) 10/25/18 00:15 Stool Occult Blood Negative (NEGATIVE) 10/24/18 23:13 Urine Opiates Screen Negative (NEGATIVE) 10/24/18 21:40 Urine Methadone Screen Negative (NEGATIVE) 10/24/18 21:40 Ur Barbiturates Screen Negative (NEGATIVE) 10/24/18 21:40 Ur Phencyclidine Scrn Negative (NEGATIVE) 10/24/18 21:40 Ur Amphetamines Screen Negative (NEGATIVE) 10/24/18 21:40 U Benzodiazepines Scrn Negative (NEGATIVE) 10/24/18 21:40 U Oth Cocaine Metabols Positive (NEGATIVE) H 10/24/18 21:40 U Cannabinoids Screen Negative (NEGATIVE) 10/24/18 21:40 Alcohol, Quantitative < 10 mg/dl (0-10) 10/24/18 22:10 IgG 1434 mg/dL (694-1618) 10/26/18 08:40 IgA 433 mg/dL (81-463) 10/26/18 08:40 IgM 187 mg/dL (48-271) 10/26/18 08:40 LOUISE & SPEP Interp See note 10/26/18 08:40 Serum Immunofixation Not detected (Not Detected) 10/26/18 08:40 Urine Immunofixation Not detected (Not Detected) 10/26/18 08:00 [place]/Lambda Light Chain (()) 10/26/18 08:40 Free [place] Light Chains 31.3 mg/L (3.3-19.4) H 10/26/18 08:40 Free Lambda Light Chain 29.3 mg/L (5.7-26.3) H 10/26/18 08:40 Free [place]/Lambda Ratio 1.07 (0.26-1.65) 10/26/18 08:40 HIV-1 Ab Rapid Screen Non reactive (NON REAC) 10/24/18 23:13 Infectious [place] Assay Positive (NEGATIVE) H 10/24/18 22:10 Blood Type A POSITIVE 10/31/18 17:10 Blood Type Confirm A POSITIVE 10/24/18 22:29 Antibody Screen Negative 10/31/18 17:10 Crossmatch See Detail 10/31/18 17:10 BBK History Checked Patient has bt 10/31/18 17:10 Discharge Exam - Head Exam Head Exam: NORMOCEPHALIC Discharge Plan - Discharge Medications Prescriptions: oxyCODONE [oxyCODONE Immediate Release Tab] 10 mg PO Q4 #90 tab Alprazolam [Xanax] 0.5 mg PO Q12 #4 tab - Follow Up Plan Condition: FAIR Disposition: HOME/ ROUTINE Instructions: Abdominal Paracentesis, Generalized Weakness (DC), Normocytic Normochromic Anemia (DC) Additional Instructions: follow up with primary MD and dr cannon 1 week appointment made with research affiliate dr mauricio for november 14 at 10:45am make follow up appointment with interventional radiology Referrals: Shaik Arreola MD [Family Provider] - Demetrius Cannon MD [Staff Provider] - Patrick Lara MD [Staff Provider] - Ilia Mauricio MD, PhD [Staff Provider] - Ulises Nichols MD [Medical Doctor] -
--- NOTE | 2018-11-03 15:04 | US ---
PROCEDURE: Date of procedure: 10/31/2018 Procedure: Ultrasound-guided biopsy of right axillary lymph node, CPT 72247 Ultrasound guidance for biopsy, [id number] HISTORY: Enlarged axillary lymph nodes TECHNIQUE: Following informed consent and procedure time-out, limited ultrasound patient's right axilla demonstrates multiple enlarged axillary lymph nodes which are ovoid shape and hypoechoic. Loss of fatty hilum is demonstrated. The largest lymph node measures 2cm centimeters. After the patient axilla was prepped and draped in the usual sterile fashion and the skin anesthetized with lidocaine, a 20 gauge core needle was advanced percutaneously into the largest lymph node. Upon confirmation of needle position, multiple core specimens were obtained and sent for routine pathology. A post biopsy ultrasound showed no hematoma IMPRESSION: Ultrasound-guided core biopsy of enlarged right axillary lymph node.
== END 2018-11-01 17:00 | disposition home or self-care (01) | DRG 841 ==
LOC: H.ER 20:49 → H.ERHOLD 23:04 → H.MEDSURG1 10-25 10:59
PROVIDERS: ADMIT Internal Medicine; ATTEND Internal Medicine
PROC: 30253N1 (ICD-10-PCS; 2018-10-25)
PROC: 07D53ZX Extraction of Right Axillary Lymphatic, Percutaneous Approach, Diagnostic (ICD-10-PCS; principal; 2018-10-31)
DX: C77.3 Secondary and unspecified malignant neoplasm of axilla and upper limb lymph nodes (principal); C78.7 Secondary malignant neoplasm of liver and intrahepatic bile duct; C79.51 Secondary malignant neoplasm of bone; R18.8 Other ascites; D64.89 Other specified anemias; C80.1 Malignant (primary) neoplasm, unspecified; N63.20 Unspecified lump in the left breast, unspecified quadrant; G89.29 Other chronic pain; F14.10 Cocaine abuse, uncomplicated; K86.9 Disease of pancreas, unspecified; I10 Essential (primary) hypertension; F41.9 Anxiety disorder, unspecified; Z91.14 Patient's other noncompliance with medication regimen